=== PATIENT | male | born 1960 | race American Indian/Alaskan Native ===

== ENCOUNTER 2017-10-23 10:37 | Emergency (ER) | payer MEDICAID ==
[~2017-10-23] VITALS: Ht 167.6 cm; Wt 47.8 kg
[~2017-10-23 10:37] MED LIST: HYDR-569 PO
[2017-10-23 11:31] LABS: BASOPHILS # (AUTO) 0.1 X10'3 (0-0.2); BASOPHILS % (AUTO) 1.2 % (0-1); EOSINOPHILS # (AUTO) 0.1 X10'3 (0-0.9); EOSINOPHILS % (AUTO) 1.4 % (0-6); HEMATOCRIT 39.9 % (42.0-52.0); HEMOGLOBIN 13.4 g/dl (14.0-17.9); LYMPHOCYTES # (AUTO) 1.4 X10'3 (1.1-4.8); LYMPHOCYTES % (AUTO) 23.7 % (21-51); MEAN CORPUSCULAR HGB CONC 33.6 % (33.0-36.5); MEAN CORPUSCULAR VOLUME 89.2 FL (78-98); MEAN PLATELET VOLUME 8.4 FL (7.4-10.4); MONOCYTES # (AUTO) 0.5 X10'3 (0-0.9); MONOCYTES % (AUTO) 8.7 % (2-12); NEUTROPHILS # (AUTO) 3.8 X10'3 (1.8-7.7); PLATELET COUNT 241 X10'3 (140-440); RED BLOOD COUNT 4.47 X10'6 (4.70-6.10); RED CELL DISTRIBUTION WIDTH 13.4 % (11.5-14.5); WHITE BLOOD COUNT 5.8 X10'3 (4.5-11.0)
[2017-10-23 11:50] LABS: CLARITY,URINE SLIGHTLY CLOUDY (Clear); COLOR,URINE STRAW (Yellow); GLUCOSE, URINE NEGATIVE (Neg); KETONES,URINE 40 mg/dl (Neg); LEUKOCYTE ESTERASE ,URINE MODERATE (Neg); NITRITES, URINE POSITIVE (Neg); OCCULT BLOOD,URINE NEGATIVE (Neg); PROTEIN,URINE NEGATIVE (Neg); UROBILINOGEN,URINE 0.2 E.U/dL (0.2-1.0)
[2017-10-23 11:51] LABS: UA COLLECTION TYPE VOIDED
[2017-10-23] MEDS ORDERED: cephalexin 250mg capsule PO ONE (11:55)
[2017-10-23 11:56] LABS: ALANINE AMINOTRANSFERASE 22 U/L (12-78); ALBUMIN 4.1 G/DL (3.4-5.0); ALBUMIN/GLOBULIN RATIO 1.2 (1.1-1.5); ALKALINE PHOSPHATASE 76 IU/L (46-116); ANION GAP 8 (8-16); ASPARTATE AMINO TRANSFERASE 15 U/L (10-37); BILIRUBIN,TOTAL 0.5 MG/DL (0.1-1.0); BLOOD UREA NITROGEN 5 MG/DL (7-18); CALCIUM 9.3 MG/DL (8.5-10.1); CHLORIDE 105 MMOL/L (99-107); CREATININE 0.83 MG/DL (0.60-1.10); GLUCOSE 98 MG/DL (70-104); POTASSIUM 3.7 MMOL/L (3.5-5.1); SODIUM 140 MMOL/L (135-145); TOTAL CARBON DIOXIDE 26.7 MMOL/L (24-32); TOTAL PROTEIN 7.5 G/DL (6.4-8.2); eGFR > 90 ML/MIN
[2017-10-23 12:03] LABS: MUCUS STRANDS NONE SEEN /LPF (Neg); SQUAMOUS EPITHELIAL CELL,UR NONE SEEN /LPF (FEW); WBC CLUMPS,URINE FEW /HPF (NEGATIVE)
[2017-10-23 12:04] LABS: RBC,URINE 0-2 /HPF (0-2)
[2017-10-23 12:05] LABS: BACTERIA,URINE 4+ /HPF (Neg)
[2017-10-23] MEDS ORDERED: CEPH500C5 PO (12:17)
[2017-10-23 12:46] VITALS: BP 141/75
[2017-10-23] MEDS ORDERED: ZIPR20CA2 PO (13:20)
[2017-10-24] MEDS ORDERED: METO-539 PO (11:41)
[2017-10-24] MEDS ORDERED: FAMO40TA7 PO (11:41)
[2017-10-24] MEDS ORDERED: ROPI0.5T2 PO (11:41)
[2017-10-24] MEDS ORDERED: ACET325T55 PO (11:41)
[2017-10-24] MEDS ORDERED: CETI-102 PO (11:41)
[2017-10-24] MEDS ORDERED: CHOL50004 PO (11:41)
[2017-10-24] MEDS ORDERED: OLAN5TAB5 PO (13:23)
== END 2017-10-23 12:47 | disposition home or self-care (01) ==
LOC: ER 10:38
DX: F22 Delusional disorders (principal); N39.0 Urinary tract infection, site not specified; G20 Parkinson's disease; G89.29 Other chronic pain; Z98.890 Other specified postprocedural states
CPT/HCPCS: 36415; 80053; 81001; 85025; 87088; 99284

== ENCOUNTER 2017-10-24 07:24 | Emergency (ER) | payer MEDICAID ==
[~2017-10-24] VITALS: Ht 152.4 cm; Wt 50.9 kg
[~2017-10-24 07:24] MED LIST changes: +CEPH500C5 PO; +ZIPR20CA2 PO
[2017-10-24 08:23] LABS: BASOPHILS # (AUTO) 0.1 X10'3 (0-0.2); BASOPHILS % (AUTO) 0.8 % (0-1); EOSINOPHILS # (AUTO) 0.1 X10'3 (0-0.9); EOSINOPHILS % (AUTO) 1.3 % (0-6); HEMATOCRIT 40.9 % (42.0-52.0); HEMOGLOBIN 13.9 g/dl (14.0-17.9); LYMPHOCYTES # (AUTO) 1.1 X10'3 (1.1-4.8); LYMPHOCYTES % (AUTO) 13.1 % (21-51); MEAN CORPUSCULAR HEMOGLOBIN 30.3 PG (27.0-31.0); MEAN CORPUSCULAR HGB CONC 33.9 % (33.0-36.5); MEAN CORPUSCULAR VOLUME 89.4 FL (78-98); MEAN PLATELET VOLUME 8.1 FL (7.4-10.4); MONOCYTES # (AUTO) 0.5 X10'3 (0-0.9); MONOCYTES % (AUTO) 6.5 % (2-12); NEUTROPHILS # (AUTO) 6.4 X10'3 (1.8-7.7); NEUTROPHILS % (AUTO) 78.3 % (42-75); PLATELET COUNT 244 X10'3 (140-440); RED BLOOD COUNT 4.58 X10'6 (4.70-6.10); RED CELL DISTRIBUTION WIDTH 13.2 % (11.5-14.5); WHITE BLOOD COUNT 8.2 X10'3 (4.5-11.0)
[2017-10-24 08:40] LABS: ALANINE AMINOTRANSFERASE 31 U/L (12-78); ALBUMIN 4.2 G/DL (3.4-5.0); ALBUMIN/GLOBULIN RATIO 1.2 (1.1-1.5); ALKALINE PHOSPHATASE 80 IU/L (46-116); ANION GAP 7 (8-16); ASPARTATE AMINO TRANSFERASE 20 U/L (10-37); BILIRUBIN,TOTAL 0.5 MG/DL (0.1-1.0); BLOOD UREA NITROGEN 7 MG/DL (7-18); BUN/CREATININE RATIO 8.6 (5.4-32.0); CALCIUM 9.5 MG/DL (8.5-10.1); CHLORIDE 103 MMOL/L (99-107); CREATININE 0.81 MG/DL (0.60-1.10); GLUCOSE 108 MG/DL (70-104); POTASSIUM 3.7 MMOL/L (3.5-5.1); SODIUM 138 MMOL/L (135-145); TOTAL CARBON DIOXIDE 27.8 MMOL/L (24-32); TOTAL PROTEIN 7.7 G/DL (6.4-8.2); eGFR > 90 ML/MIN
[2017-10-24 08:41] LABS: ETHANOL < 0.010 GM/DL (0.0-0.010)
[2017-10-24 09:14] LABS: CLARITY,URINE Clear (Clear); COLOR,URINE Yellow (Yellow); GLUCOSE, URINE Negative (Neg); KETONES,URINE 40 mg/dl (Neg); LEUKOCYTE ESTERASE ,URINE Moderate (Neg); NITRITES, URINE Negative (Neg); OCCULT BLOOD,URINE Negative (Neg); PROTEIN,URINE Negative (Neg)
[2017-10-24 09:15] LABS: UA COLLECTION TYPE VOIDED
[2017-10-24 09:19] LABS: URINE AMPHETAMINE SCREEN NEGATIVE (Neg); URINE BARBITUATE SCREEN NEGATIVE (Neg); URINE BENZODIAZEPINES SCREEN NEGATIVE (Neg); URINE CANNABINOID SCREEN NEGATIVE (Neg); URINE COCAINE SCREEN NEGATIVE (Neg); URINE METHADONE SCREEN NEGATIVE (Neg); URINE OPIATE SCREEN NEGATIVE (Neg); URINE PHENCYCLIDINE SCREEN NEGATIVE (Neg)
[2017-10-24 09:21] LABS: BACTERIA,URINE FEW /HPF (Neg); RBC,URINE NONE SEEN /HPF (0-2); SQUAMOUS EPITHELIAL CELL,UR NONE SEEN /LPF (FEW)
[2017-10-24] MEDS ORDERED: cephalexin 500mg capsule PO ONE (10:30)
[2017-10-24] MEDS ORDERED: CHOL50004 PO (11:41)
[2017-10-24] MEDS ORDERED: CETI-102 PO (11:41)
[2017-10-24] MEDS ORDERED: FAMO40TA7 PO (11:41)
[2017-10-24] MEDS ORDERED: ACET325T55 PO (11:41)
[2017-10-24] MEDS ORDERED: ROPI0.5T2 PO (11:41)
[2017-10-24] MEDS ORDERED: METO-539 PO (11:41)
[2017-10-24] MEDS ORDERED: OLAN5TAB5 PO (13:23)
[2017-10-24] MEDS ORDERED: acetaminophen 325mg tablet PO PRN (14:25)
[2017-10-24] MEDS ORDERED: ziprasidone IM 20mg inj **IM only IM ONE (15:05)
[2017-10-24] MEDS ORDERED: OLANZapine 5mg rapidly disint. tablet PO SCH (21:00)
[2017-10-24] MEDS: ROPINIRole 0.25mg tablet PO SCH (21:16)
[2017-10-25] MEDS ORDERED: metoprolol succinate 25mg (24-HOUR) SR. Tablet PO SCH (08:00)
[2017-10-25] MEDS ORDERED: famotidine 20mg tablet PO SCH (08:00)
[2017-10-25] MEDS ORDERED: cetirizine 10mg tablet PO SCH (08:00)
[2017-10-25] MEDS ORDERED: vitamin D (cholecalciferol) 1,000 unit tablet PO SCH (08:00)
[2017-10-25] MEDS: ROPINIRole 0.25mg tablet PO SCH ×2 (08:59→13:31)
[2017-10-25 14:20] VITALS: BP 116/74
== END 2017-10-25 14:22 ==
LOC: ER 07:24
DX: F29 Unspecified psychosis not due to a substance or known physiological condition (principal); G89.29 Other chronic pain; F17.200 Nicotine dependence, unspecified, uncomplicated; F15.10 Other stimulant abuse, uncomplicated
CPT/HCPCS: 36415; 70450; 80053; 80305; 80320; 81001; 85025; 96372; 99285; J3486; 84443

== ENCOUNTER 2017-12-11 19:51 | Emergency (ER) | payer MEDICAID ==
[~2017-12-11] VITALS: Ht 167.6 cm; Wt 49.0 kg
[~2017-12-11 19:51] MED LIST changes: +ACET325T55 PO; +CETI-102 PO; +CHOL50004 PO; +FAMO40TA7 PO; -HYDR-569 PO; +METO-539 PO; +OLAN5TAB5 PO; +ROPI0.5T2 PO; -ZIPR20CA2 PO
[2017-12-11] MEDS ORDERED: ketorolac trometh inj. 60 MG/2 ML VIAL IM ONE (21:15)
[2017-12-11 21:42] VITALS: BP 110/70
== END 2017-12-11 21:43 | disposition home or self-care (01) ==
LOC: ER 19:52
DX: M54.5 Low back pain (principal); M62.838 Other muscle spasm; G89.29 Other chronic pain; Z98.890 Other specified postprocedural states; Z79.899 Other long term (current) drug therapy
CPT/HCPCS: 96372; 99284; J1885

== ENCOUNTER 2018-01-17 13:39 | Emergency (ER) | payer MEDICAID ==
[~2018-01-17] VITALS: Wt 50.0 kg
[2018-01-17] MEDS ORDERED: normal saline 1000ML IV soln IVB ONE ×2 (14:35)
[2018-01-17 14:36] LABS: COLOR,URINE Yellow (Yellow); GLUCOSE, URINE Negative (Neg); KETONES,URINE Negative (Neg); LEUKOCYTE ESTERASE ,URINE Large (Neg); NITRITES, URINE Positive (Neg); OCCULT BLOOD,URINE Negative (Neg); PH,URINE 6.5 (4.8-8.0); PROTEIN,URINE Negative (Neg)
[2018-01-17 14:46] LABS: UA COLLECTION TYPE VOIDED
[2018-01-17 14:47] LABS: CLARITY,URINE CLOUDY (Clear)
[2018-01-17 14:48] LABS: URINE AMPHETAMINE SCREEN NEGATIVE (Neg); URINE BARBITUATE SCREEN NEGATIVE (Neg); URINE BENZODIAZEPINES SCREEN NEGATIVE (Neg); URINE CANNABINOID SCREEN NEGATIVE (Neg); URINE COCAINE SCREEN NEGATIVE (Neg); URINE METHADONE SCREEN NEGATIVE (Neg); URINE OPIATE SCREEN NEGATIVE (Neg); URINE PHENCYCLIDINE SCREEN NEGATIVE (Neg)
[2018-01-17 14:55] LABS: BASOPHILS # (AUTO) 0.1 X10'3 (0-0.2); EOSINOPHILS # (AUTO) 0.1 X10'3 (0-0.9); EOSINOPHILS % (AUTO) 1.8 % (0-6); HEMATOCRIT 40.6 % (42.0-52.0); HEMOGLOBIN 13.5 g/dl (14.0-17.9); LYMPHOCYTES # (AUTO) 1.9 X10'3 (1.1-4.8); LYMPHOCYTES % (AUTO) 24.5 % (21-51); MEAN CORPUSCULAR HEMOGLOBIN 29.1 PG (27.0-31.0); MEAN CORPUSCULAR HGB CONC 33.3 % (33.0-36.5); MEAN CORPUSCULAR VOLUME 87.5 FL (78-98); MEAN PLATELET VOLUME 8.7 FL (7.4-10.4); MONOCYTES # (AUTO) 0.5 X10'3 (0-0.9); MONOCYTES % (AUTO) 6.6 % (2-12); NEUTROPHILS # (AUTO) 5.3 X10'3 (1.8-7.7); NEUTROPHILS % (AUTO) 66.1 % (42-75); PLATELET COUNT 246 X10'3 (140-440); RED BLOOD COUNT 4.64 X10'6 (4.70-6.10); WHITE BLOOD COUNT 7.9 X10'3 (4.5-11.0)
[2018-01-17 14:57] LABS: BACTERIA,URINE 4+ /HPF (Neg); CAL OXALATE CRYSTALS FEW /HPF (NEGATIVE)
[2018-01-17 14:58] LABS: RBC,URINE 0-2 /HPF (0-2); SQUAMOUS EPITHELIAL CELL,UR FEW /LPF (FEW)
[2018-01-17 14:59] LABS: MUCUS STRANDS FEW /LPF (Neg); WBC CLUMPS,URINE FEW /HPF (NEGATIVE)
[2018-01-17 15:20] LABS: ALANINE AMINOTRANSFERASE 31 U/L (12-78); ALBUMIN/GLOBULIN RATIO 1.1 (1.1-1.5); ALKALINE PHOSPHATASE 100 IU/L (46-116); ANION GAP 10 (8-16); ASPARTATE AMINO TRANSFERASE 14 U/L (10-37); BILIRUBIN,TOTAL 0.3 MG/DL (0.1-1.0); BLOOD UREA NITROGEN 8 MG/DL (7-18); BUN/CREATININE RATIO 9.1 (5.4-32.0); CALCIUM 9.4 MG/DL (8.5-10.1); CHLORIDE 107 MMOL/L (99-107); CREATININE 0.88 MG/DL (0.60-1.10); ETHANOL < 0.010 GM/DL (0.0-0.010); GLUCOSE 100 MG/DL (70-104); SODIUM 146 MMOL/L (135-145); TOTAL CARBON DIOXIDE 29.5 MMOL/L (24-32); TOTAL PROTEIN 7.5 G/DL (6.4-8.2); eGFR 90 ML/MIN
[2018-01-17] MEDS ORDERED: HYDR-3686 PO (17:20)
[2018-01-17] MEDS ORDERED: ROPI1TAB4 PO (17:20)
[2018-01-17] MEDS ORDERED: OLANZapine 2.5MG tablet PO ONE (17:50)
[2018-01-17] MEDS ORDERED: acetaminophen 325mg tablet PO PRN (18:05)
[2018-01-17] MEDS: ROPINIRole 1mg tablet PO SCH (20:45)
[2018-01-17] MEDS: hydrOXYzine 25 MG tablet PO SCH (20:45)
[2018-01-18] MEDS: cetirizine 10mg tablet PO SCH (07:55)
[2018-01-18] MEDS: cephalexin 500mg capsule PO SCH ×2 (07:55→20:50)
[2018-01-18] MEDS: vitamin D (cholecalciferol) 1,000 unit tablet PO SCH (07:56)
[2018-01-18] MEDS: famotidine 20mg tablet PO SCH (07:56)
[2018-01-18] MEDS: ROPINIRole 1mg tablet PO SCH ×3 (07:56→20:50)
[2018-01-18] MEDS: metoprolol succinate 25mg (24-HOUR) SR. Tablet PO SCH (08:00)
[2018-01-18] MEDS: lactobacillus rhamnosus 10,000 MMU CELLS/CAPSULE PO SCH (20:51)
[2018-01-18] MEDS: hydrOXYzine 25 MG tablet PO SCH (20:51)
[2018-01-18] MEDS: olanzapine 10mg tablet PO SCH (20:51)
[2018-01-19] MEDS: metoprolol succinate 25mg (24-HOUR) SR. Tablet PO SCH (08:00)
[2018-01-19] MEDS: cephalexin 500mg capsule PO SCH ×2 (08:28→20:19)
[2018-01-19] MEDS: lactobacillus rhamnosus 10,000 MMU CELLS/CAPSULE PO SCH ×2 (08:28→20:18)
[2018-01-19] MEDS: famotidine 20mg tablet PO SCH (08:28)
[2018-01-19] MEDS: ROPINIRole 1mg tablet PO SCH ×3 (08:28→20:19)
[2018-01-19] MEDS: cetirizine 10mg tablet PO SCH (08:29)
[2018-01-19] MEDS: vitamin D (cholecalciferol) 1,000 unit tablet PO SCH (08:29)
[2018-01-19] MEDS: LORazepam 1 MG tablet PO PRN (16:56)
[2018-01-19] MEDS: olanzapine 10mg tablet PO SCH (20:18)
[2018-01-19] MEDS: hydrOXYzine 25 MG tablet PO SCH (20:21)
[2018-01-20] MEDS: metoprolol succinate 25mg (24-HOUR) SR. Tablet PO SCH (07:37)
[2018-01-20] MEDS: cephalexin 500mg capsule PO SCH ×2 (07:38→20:41)
[2018-01-20] MEDS: lactobacillus rhamnosus 10,000 MMU CELLS/CAPSULE PO SCH ×2 (07:38→20:41)
[2018-01-20] MEDS: cetirizine 10mg tablet PO SCH (07:39)
[2018-01-20] MEDS: famotidine 20mg tablet PO SCH (07:39)
[2018-01-20] MEDS: vitamin D (cholecalciferol) 1,000 unit tablet PO SCH (07:39)
[2018-01-20] MEDS: ROPINIRole 1mg tablet PO SCH ×3 (07:39→20:41)
[2018-01-20] MEDS: LORazepam 1 MG tablet PO PRN (14:50)
[2018-01-20] MEDS: hydrOXYzine 25 MG tablet PO SCH (20:40)
[2018-01-20] MEDS: olanzapine 10mg tablet PO SCH (20:41)
[2018-01-21] MEDS: lactobacillus rhamnosus 10,000 MMU CELLS/CAPSULE PO SCH ×2 (08:44→20:15)
[2018-01-21] MEDS: famotidine 20mg tablet PO SCH (08:44)
[2018-01-21] MEDS: cetirizine 10mg tablet PO SCH (08:44)
[2018-01-21] MEDS: cephalexin 500mg capsule PO SCH ×2 (08:44→20:15)
[2018-01-21] MEDS: ROPINIRole 1mg tablet PO SCH ×3 (08:44→20:15)
[2018-01-21] MEDS: vitamin D (cholecalciferol) 1,000 unit tablet PO SCH (08:45)
[2018-01-21] MEDS: hydrOXYzine 25 MG tablet PO SCH (20:15)
[2018-01-21] MEDS: olanzapine 10mg tablet PO SCH (20:15)
[2018-01-21] MEDS: LORazepam 1 MG tablet PO PRN (21:06)
[2018-01-22] MEDS: cetirizine 10mg tablet PO SCH (08:02)
[2018-01-22] MEDS: ROPINIRole 1mg tablet PO SCH ×3 (08:02→20:37)
[2018-01-22] MEDS: lactobacillus rhamnosus 10,000 MMU CELLS/CAPSULE PO SCH ×2 (08:02→20:37)
[2018-01-22] MEDS: cephalexin 500mg capsule PO SCH ×2 (08:03→20:37)
[2018-01-22] MEDS: vitamin D (cholecalciferol) 1,000 unit tablet PO SCH (08:05)
[2018-01-22] MEDS: famotidine 20mg tablet PO SCH (08:07)
[2018-01-22] MEDS: hydrOXYzine 25 MG tablet PO SCH (20:37)
[2018-01-22] MEDS: olanzapine 10mg tablet PO SCH (20:40)
[2018-01-23] MEDS: cetirizine 10mg tablet PO SCH (08:15)
[2018-01-23] MEDS: lactobacillus rhamnosus 10,000 MMU CELLS/CAPSULE PO SCH ×2 (08:15→20:27)
[2018-01-23] MEDS: cephalexin 500mg capsule PO SCH ×2 (08:16→20:27)
[2018-01-23] MEDS: ROPINIRole 1mg tablet PO SCH ×3 (08:17→20:28)
[2018-01-23] MEDS: vitamin D (cholecalciferol) 1,000 unit tablet PO SCH (08:17)
[2018-01-23] MEDS: famotidine 20mg tablet PO SCH (08:17)
[2018-01-23] MEDS: LORazepam 1 MG tablet PO PRN (08:17)
[2018-01-23] MEDS ORDERED: RISP2TAB97 PO (14:06)
[2018-01-23] MEDS: OLANZapine 5mg rapidly disint. tablet PO SCH (15:39)
[2018-01-23] MEDS: hydrOXYzine 25 MG tablet PO SCH (20:28)
[2018-01-24] MEDS: LORazepam 1 MG tablet PO PRN ×2 (01:55→17:01)
[2018-01-24] MEDS: vitamin D (cholecalciferol) 1,000 unit tablet PO SCH (09:15)
[2018-01-24] MEDS: OLANZapine 5mg rapidly disint. tablet PO SCH ×2 (09:15→13:07)
[2018-01-24] MEDS: cetirizine 10mg tablet PO SCH (09:16)
[2018-01-24] MEDS: ROPINIRole 1mg tablet PO SCH ×2 (09:16→13:07)
[2018-01-24] MEDS: famotidine 20mg tablet PO SCH (09:16)
[2018-01-24] MEDS: cephalexin 500mg capsule PO SCH (09:16)
[2018-01-24] MEDS: lactobacillus rhamnosus 10,000 MMU CELLS/CAPSULE PO SCH (09:16)
[2018-01-24 18:15] VITALS: BP 99/66
== END 2018-01-24 18:19 ==
LOC: ER 13:39
DX: F29 Unspecified psychosis not due to a substance or known physiological condition (principal); F22 Delusional disorders; R44.0 Auditory hallucinations; G89.29 Other chronic pain; F17.200 Nicotine dependence, unspecified, uncomplicated; Z79.899 Other long term (current) drug therapy; Z60.2 Problems related to living alone
CPT/HCPCS: 36415; 80053; 80305; 80320; 81001; 84443; 85025; 96360; 99285; J3490; J7030; Q0177

== ENCOUNTER 2018-03-18 17:06 | Emergency (ER) | payer MEDICAID ==
[~2018-03-18] VITALS: Ht 170.2 cm; Wt 53.0 kg
[~2018-03-18 17:06] MED LIST changes: -CEPH500C5 PO; +HYDR-3686 PO; -OLAN5TAB5 PO; +RISP2TAB97 PO; -ROPI0.5T2 PO; +ROPI1TAB4 PO
[2018-03-18 17:16] VITALS: BP 131/85
[2018-03-18] MEDS ORDERED: LORazepam 0.5 MG tablet PO PRN (17:35)
== END 2018-03-18 17:50 | disposition home or self-care (01) ==
LOC: ER 17:06
DX: G25.2 Other specified forms of tremor (principal); G89.29 Other chronic pain; Z98.890 Other specified postprocedural states; Z79.899 Other long term (current) drug therapy
CPT/HCPCS: 99282

== ENCOUNTER 2018-05-12 23:58 | Emergency (ER) | payer MEDICAID ==
[~2018-05-12] VITALS: Ht 167.6 cm; Wt 55.9 kg
[2018-05-13 00:04] VITALS: BP 130/89
== END 2018-05-13 01:08 | disposition home or self-care (01) ==
LOC: ER 23:59
DX: R25.1 Tremor, unspecified (principal); G89.29 Other chronic pain; Z98.890 Other specified postprocedural states; Z79.899 Other long term (current) drug therapy
CPT/HCPCS: 99284

== ENCOUNTER 2018-08-22 15:20 | Outpatient (CLI) | payer MEDICAID | END 2018-08-22 23:59 | disposition home or self-care (01) | LOC: RAD 15:20 | PROVIDERS: ATTEND Nurse Practitioner Family | DX: R13.12 Dysphagia, oropharyngeal phase (principal); R47.1 Dysarthria and anarthria; F17.200 Nicotine dependence, unspecified, uncomplicated; Z79.899 Other long term (current) drug therapy | CPT/HCPCS: 74230 ==

== ENCOUNTER 2018-09-05 17:23 | Emergency (ER) | payer MEDICAID ==
[~2018-09-05] VITALS: Ht 167.6 cm; Wt 49.0 kg
[2018-09-05] MEDS: LORazepam 2 mg/ml vial IM ONE (19:46)
[2018-09-05 20:42] VITALS: BP 105/69
== END 2018-09-05 20:45 | disposition home or self-care (01) ==
LOC: ER 17:23
DX: G20 Parkinson's disease (principal); G89.29 Other chronic pain; F12.90 Cannabis use, unspecified, uncomplicated; Z79.899 Other long term (current) drug therapy
CPT/HCPCS: 96372; 99284; J2060

== ENCOUNTER 2019-05-27 09:43 | Emergency (ER) | payer MEDICAID ==
[~2019-05-27] VITALS: Ht 160 cm; Wt 45.0 kg
[2019-05-27 10:05] VITALS: BP 106/67
[2019-05-27 10:50] LABS: BASOPHILS % (AUTO) 0.5 % (0-1); EOSINOPHILS # (AUTO) 0.1 X10'3 (0-0.9); EOSINOPHILS % (AUTO) 0.8 % (0-6); HEMATOCRIT 37.5 % (42.0-52.0); HEMOGLOBIN 12.5 g/dl (14.0-17.9); LYMPHOCYTES # (AUTO) 2.5 X10'3 (1.1-4.8); LYMPHOCYTES % (AUTO) 33.6 % (21-51); MEAN CORPUSCULAR HEMOGLOBIN 29.9 PG (27.0-31.0); MEAN CORPUSCULAR HGB CONC 33.4 g/dL (33.0-36.5); MEAN CORPUSCULAR VOLUME 89.6 FL (78-98); MEAN PLATELET VOLUME 7.2 FL (7.4-10.4); MONOCYTES # (AUTO) 0.6 X10'3 (0-0.9); MONOCYTES % (AUTO) 7.6 % (2-12); NEUTROPHILS # (AUTO) 4.2 X10'3 (1.8-7.7); NEUTROPHILS % (AUTO) 57.5 % (42-75); PLATELET COUNT 282 X10'3 (140-440); RED BLOOD COUNT 4.18 X10'6 (4.70-6.10); RED CELL DISTRIBUTION WIDTH 13.7 % (11.5-14.5); WHITE BLOOD COUNT 7.3 X10'3 (4.5-11.0)
[2019-05-27 11:03] LABS: ALANINE AMINOTRANSFERASE 18 U/L (12-78); ALBUMIN 3.2 G/DL (3.4-5.0); ALBUMIN/GLOBULIN RATIO 0.8 (1.1-1.5); ALKALINE PHOSPHATASE 98 IU/L (46-116); ANION GAP 5 (8-16); ASPARTATE AMINO TRANSFERASE 7 U/L (10-37); BILIRUBIN,TOTAL 0.2 MG/DL (0.1-1.0); BLOOD UREA NITROGEN 7 MG/DL (7-18); BUN/CREATININE RATIO 9.2 (5.4-32.0); CALCIUM 9.5 MG/DL (8.5-10.1); CHLORIDE 109 MMOL/L (99-107); CREATININE 0.76 MG/DL (0.60-1.10); GLUCOSE 78 MG/DL (70-104); POTASSIUM 4.1 MMOL/L (3.5-5.1); SODIUM 145 MMOL/L (135-145); TOTAL CARBON DIOXIDE 30.7 MMOL/L (24-32); eGFR > 90 ML/MIN
[2019-05-27 11:24] LABS: CLARITY,URINE CLOUDY (Clear); COLOR,URINE YELLOW (Yellow); GLUCOSE, URINE NEGATIVE (Neg); KETONES,URINE NEGATIVE (Neg); LEUKOCYTE ESTERASE ,URINE LARGE (Neg); NITRITES, URINE POSITIVE (Neg); OCCULT BLOOD,URINE NEGATIVE (Neg); PROTEIN,URINE NEGATIVE (Neg); UROBILINOGEN,URINE 0.2 E.U/dL (0.2-1.0)
[2019-05-27 11:31] LABS: UA COLLECTION TYPE URINAL
[2019-05-27 11:33] LABS: BACTERIA,URINE 4+ /HPF (Neg); RBC,URINE NONE SEEN /HPF (0-2); SQUAMOUS EPITHELIAL CELL,UR NONE SEEN /LPF (FEW); WBC CLUMPS,URINE MODERATE /HPF (NEGATIVE)
[2019-05-27 11:34] LABS: AMORPHOUS PHOSPHATES 3+
--- NOTE | 2019-06-01 16:52 | NUR ---
PT CALLED AND SPOKE WITH . INFORMED THAT PT NEED AN ABX FOR A POSITIVE URINE CULTURE. INFORMED THAT BACTRIM DS WOULD BE CALLED IN FOR THE PT. REQUESTED THAT RX BE CALLED INTO [facility] ON [address]; BACTR[facility] 1 TAB PO BID X10 DAYS CALLED TO [facility] REQUESTED.
== END 2019-05-27 12:21 | disposition home or self-care (01) ==
LOC: ER 09:43
DX: R13.10 Dysphagia, unspecified (principal); G20 Parkinson's disease; R63.4 Abnormal weight loss; G89.29 Other chronic pain; F10.10 Alcohol abuse, uncomplicated; F12.90 Cannabis use, unspecified, uncomplicated; Z68.1 Body mass index [BMI] 19.9 or less, adult; Z98.890 Other specified postprocedural states; Z79.899 Other long term (current) drug therapy; Y90.9 Presence of alcohol in blood, level not specified
CPT/HCPCS: 36415; 80053; 81001; 85025; 85610; 87077; 87088; 87186; 99284

== ENCOUNTER 2019-06-05 11:12 | Emergency (ER) | payer MEDICAID ==
[~2019-06-05] VITALS: Ht 170.2 cm; Wt 45.8 kg
[2019-06-05] MEDS ORDERED: normal saline 1000ML IV soln IVB ONE (11:25)
[2019-06-05 11:52] LABS: BASOPHILS # (AUTO) 0.1 X10'3 (0-0.2); EOSINOPHILS % (AUTO) 0.4 % (0-6); HEMATOCRIT 38.8 % (42.0-52.0); LYMPHOCYTES # (AUTO) 1.7 X10'3 (1.1-4.8); LYMPHOCYTES % (AUTO) 23.4 % (21-51); MEAN CORPUSCULAR HEMOGLOBIN 29.5 PG (27.0-31.0); MEAN CORPUSCULAR HGB CONC 33.5 g/dL (33.0-36.5); MEAN PLATELET VOLUME 7.1 FL (7.4-10.4); MONOCYTES # (AUTO) 0.6 X10'3 (0-0.9); MONOCYTES % (AUTO) 8.1 % (2-12); NEUTROPHILS # (AUTO) 4.7 X10'3 (1.8-7.7); NEUTROPHILS % (AUTO) 67.1 % (42-75); PLATELET COUNT 298 X10'3 (140-440); RED BLOOD COUNT 4.41 X10'6 (4.70-6.10); RED CELL DISTRIBUTION WIDTH 13.1 % (11.5-14.5); WHITE BLOOD COUNT 7.1 X10'3 (4.5-11.0)
[2019-06-05 12:04] LABS: ALANINE AMINOTRANSFERASE 15 U/L (12-78); ALBUMIN 3.5 G/DL (3.4-5.0); ALBUMIN/GLOBULIN RATIO 0.9 (1.1-1.5); ALKALINE PHOSPHATASE 111 IU/L (46-116); ANION GAP 8 (8-16); ASPARTATE AMINO TRANSFERASE 8 U/L (10-37); BILIRUBIN,TOTAL 0.3 MG/DL (0.1-1.0); BLOOD UREA NITROGEN 8 MG/DL (7-18); BUN/CREATININE RATIO 10.4 (5.4-32.0); CALCIUM 9.7 MG/DL (8.5-10.1); CHLORIDE 106 MMOL/L (99-107); CREATININE 0.77 MG/DL (0.60-1.10); GLUCOSE 93 MG/DL (70-104); MAGNESIUM 1.7 MG/DL (1.5-2.4); PHOSPHORUS 3.9 MG/DL (2.3-4.5); POTASSIUM 3.9 MMOL/L (3.5-5.1); SODIUM 142 MMOL/L (135-145); TOTAL CARBON DIOXIDE 27.8 MMOL/L (24-32); TOTAL PROTEIN 7.6 G/DL (6.4-8.2); eGFR > 90 ML/MIN
[2019-06-05] MEDS ORDERED: ibuprofen 200mg tablet PO ONE (13:35)
[2019-06-05] MEDS ORDERED: pseudoephedrine 30mg tablet PO ONE (13:35)
[2019-06-05 14:22] LABS: CLARITY,URINE SLIGHTLY CLOUDY (Clear); COLOR,URINE YELLOW (Yellow); GLUCOSE, URINE NEGATIVE (Neg); KETONES,URINE NEGATIVE (Neg); LEUKOCYTE ESTERASE ,URINE SMALL (Neg); NITRITES, URINE NEGATIVE (Neg); OCCULT BLOOD,URINE NEGATIVE (Neg); PROTEIN,URINE NEGATIVE (Neg); UROBILINOGEN,URINE 0.2 E.U/dL (0.2-1.0)
[2019-06-05 14:23] LABS: UA COLLECTION TYPE CLN CATCH MIDSTREAM
[2019-06-05 14:28] LABS: MUCUS STRANDS FEW /LPF (Neg); SQUAMOUS EPITHELIAL CELL,UR MODERATE /LPF (FEW)
[2019-06-05 14:29] LABS: BACTERIA,URINE 1+ /HPF (Neg); HYALINE CASTS 0-3 /LPF (NEGATIVE); RBC,URINE 0-2 /HPF (0-2)
[2019-06-05 15:32] VITALS: BP 137/88
== END 2019-06-05 15:33 | disposition home or self-care (01) ==
LOC: MERGE 11:13 → ER 11:13
DX: N39.0 Urinary tract infection, site not specified (principal); G20 Parkinson's disease; R05 Cough
CPT/HCPCS: 36415; 70450; 80053; 81001; 83735; 84100; 84484; 85025; 87088; 93005; 99284; J7030

== ENCOUNTER 2019-11-30 11:10 | Emergency (ER) | payer MEDICAID ==
[~2019-11-30] VITALS: Ht 167.6 cm; Wt 45.4 kg
[~2019-11-30 11:10] MED LIST changes: -CETI-102 PO; +CETI-90 PO; -ROPI1TAB4 PO; +ROPI1TAB6 PO
[2019-11-30 11:14] VITALS: BP 127/76
== END 2019-11-30 12:05 | disposition left against medical advice (07) ==
LOC: ER 11:10
DX: K59.00 Constipation, unspecified (principal); Z53.21 Procedure and treatment not carried out due to patient leaving prior to being seen by health care provider

== ENCOUNTER 2020-04-13 17:43 | Emergency (ER) | payer MEDICAID ==
[~2020-04-13] VITALS: Ht 165.1 cm; Wt 45.0 kg
[2020-04-13 17:50] VITALS: BP 126/73
--- NOTE | 2020-04-13 18:36 | NUR ---
PER SCREENER, PT LWOBS. PT BIB EMS AND TRIAGED FOR ETOH AND PARKENSONS, HAS NOT BEEN TAKING HIS MEDICATIONS PER EMS. ATTEMPT WAS MADE TO STOP PT BUT HE TOOK OFF OUT THE LOBBY DOOR AND OUT TO THE STREET.
== END 2020-04-13 18:36 | disposition left against medical advice (07) ==
LOC: ER 17:44
DX: Z91.14 Patient's other noncompliance with medication regimen (principal); M25.539 Pain in unspecified wrist; Z53.21 Procedure and treatment not carried out due to patient leaving prior to being seen by health care provider

== ENCOUNTER 2022-03-14 09:40 | Emergency (ER) | payer MEDICAID ==
[~2022-03-14] VITALS: Ht 167.6 cm; Wt 47.2 kg
[2022-03-14 10:06] VITALS: BP 113/90
--- NOTE | 2022-03-14 11:47 | NUR ---
Patients caregiver states that patient reporting the voices are telling him to leave. Patient was asked encouraged to stay longer, patient unwilling to wait to be seen. Patient left with caregiver.
[2022-03-15] MEDS ORDERED: CARB1TAB23 PO ×3 (15:30→15:32)
== END 2022-03-14 11:48 | disposition left against medical advice (07) ==
LOC: ER 09:40
DX: R44.0 Auditory hallucinations (principal); Z53.21 Procedure and treatment not carried out due to patient leaving prior to being seen by health care provider

== ENCOUNTER 2022-03-15 06:32 | Inpatient (IN) | payer MEDICAID ==
[~2022-03-15] VITALS: Ht 167.6 cm; Wt 49.4 kg
[2022-03-15 07:27] LABS: BASOPHILS # (AUTO) 0.1 X10'3 (0-0.2); EOSINOPHILS % (AUTO) 0.7 % (0-6); HEMATOCRIT 42.1 % (42.0-52.0); HEMOGLOBIN 14.3 g/dl (14.0-17.9); LYMPHOCYTES # (AUTO) 1.4 X10'3 (1.1-4.8); LYMPHOCYTES % (AUTO) 24.4 % (21-51); MEAN CORPUSCULAR HEMOGLOBIN 31.2 PG (27.0-31.0); MEAN CORPUSCULAR VOLUME 91.9 FL (78-98); MEAN PLATELET VOLUME 8.3 FL (7.4-10.4); MONOCYTES # (AUTO) 0.5 X10'3 (0-0.9); MONOCYTES % (AUTO) 8.6 % (2-12); NEUTROPHILS # (AUTO) 3.8 X10'3 (1.8-7.7); NEUTROPHILS % (AUTO) 65.3 % (42-75); PLATELET COUNT 247 X10'3 (140-440); RED BLOOD COUNT 4.58 X10'6 (4.70-6.10); WHITE BLOOD COUNT 5.8 X10'3 (4.5-11.0)
[2022-03-15 07:38] LABS: ALANINE AMINOTRANSFERASE 17 U/L (12-78); ALBUMIN 3.8 G/DL (3.4-5.0); ALBUMIN/GLOBULIN RATIO 1.1 (1.1-1.5); ALKALINE PHOSPHATASE 87 IU/L (46-116); ANION GAP 13 (8-16); ASPARTATE AMINO TRANSFERASE 22 U/L (10-37); BILIRUBIN,TOTAL 0.8 MG/DL (0.1-1.0); BLOOD UREA NITROGEN 13 MG/DL (7-18); BUN/CREATININE RATIO 15.1 (5.4-32.0); CALCIUM 8.9 MG/DL (8.5-10.1); CHLORIDE 103 MMOL/L (99-107); CREATININE 0.86 MG/DL (0.60-1.10); GLUCOSE 64 MG/DL (70-104); POTASSIUM 4.4 MMOL/L (3.5-5.1); SODIUM 139 MMOL/L (135-145); TOTAL CARBON DIOXIDE 23.3 MMOL/L (24-32); TOTAL PROTEIN 7.4 G/DL (6.4-8.2); eGFR > 90 ML/MIN
[2022-03-15 07:49] LABS: ETHANOL < 0.010 GM/DL (0.0-0.010)
[2022-03-15 08:06] LABS: CLARITY,URINE CLEAR (Clear); COLOR,URINE YELLOW (Yellow); GLUCOSE, URINE NEGATIVE (Neg); KETONES,URINE >=80 mg/dl (Neg); LEUKOCYTE ESTERASE ,URINE NEGATIVE (Neg); OCCULT BLOOD,URINE TRACE-INTACT (Neg); PH,URINE 5.5 (4.8-8.0); PROTEIN,URINE NEGATIVE (Neg); UA COLLECTION TYPE NON-SPECIFIED; UROBILINOGEN,URINE 0.2 E.U/dL (0.2-1.0)
[2022-03-15 08:07] LABS: NITRITES, URINE NEGATIVE (Neg)
[2022-03-15 08:10] LABS: RBC,URINE 0-2 /HPF (0-2)
[2022-03-15 08:11] LABS: BACTERIA,URINE FEW /HPF (Neg); MUCUS STRANDS NONE SEEN /LPF (Neg); SQUAMOUS EPITHELIAL CELL,UR FEW /LPF (FEW)
[2022-03-15 08:50] LABS: URINE AMPHETAMINE SCREEN NEGATIVE (Neg); URINE BARBITUATE SCREEN NEGATIVE (Neg); URINE BENZODIAZEPINES SCREEN NEGATIVE (Neg); URINE CANNABINOID SCREEN NEGATIVE (Neg); URINE COCAINE SCREEN NEGATIVE (Neg); URINE METHADONE SCREEN NEGATIVE (Neg); URINE OPIATE SCREEN NEGATIVE (Neg); URINE PHENCYCLIDINE SCREEN NEGATIVE (Neg)
--- NOTE | 2022-03-15 08:54 | NUR ---
PACKET SENT TO [facility]
--- NOTE | 2022-03-15 10:09 | NUR ---
service line layer, Keyla, PCP Dr. Mittal at [facility]
--- NOTE | 2022-03-15 10:10 | NUR ---
The patient moved to bed 20 from the main ER. He is verbalizing fear that the police are coming to arrest him and feeling unsafe. His care provider is at the bedside and reassuring him. He is thin and has tremors 2nd to parkinson's disease. The care provider was unable to state what his mental health diagnosis is or what medications he currently takes.
[2022-03-15] MEDS ORDERED: LORazepam 1 MG tablet PO ONE (12:15)
--- NOTE | 2022-03-15 12:18 | NUR ---
The patient fearful of "the people outside" who may have arrested his caregiver or want to harm him. Discussed patient's paranoia and anxiety with Dr. Nelson and orders received.
--- NOTE | 2022-03-15 13:05 | NUR ---
The patient appears to be sleeping.
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
--- NOTE | 2022-03-15 14:30 | NUR ---
The patient has sancho accepted at [facility] and will be transferred this evening
--- NOTE | 2022-03-15 14:30 | NUR ---
The patient appears to be sleeping
[2022-03-15] MEDS ORDERED: CARB1TAB23 PO ×3 (15:30→15:32)
--- NOTE | 2022-03-15 16:30 | NUR ---
The patient appears to be sleeping
[2022-03-15] MEDS: carbidoba-levodopa 25-100mg tablet PO SCH ×2 (17:47→21:06)
--- NOTE | 2022-03-15 19:05 | NUR ---
Patient has eaten dinner, and now appears to be sleeping.
--- NOTE | 2022-03-15 20:43 | NUR ---
Patient appears to be sleeping on his right side.
--- NOTE | 2022-03-15 20:45 | NUR ---
Patient is accepted to [facility] and will be going up soon.
[2022-03-15] MEDS: ROPINIRole 1mg tablet PO SCH (21:06)
--- NOTE | 2022-03-15 21:14 | NUR ---
JAMES Crawford from [facility] is here to take the patient upstairs.
[2022-03-15] MEDS ORDERED: acetaminophen 325mg tablet PO PRN ×2 (21:30)
[2022-03-15] MEDS ORDERED: loperamide 2mg capsule PO PRN (21:30)
[2022-03-15] MEDS ORDERED: mag hydrox/Alum hydrox/simeth 30ml oral suspension PO PRN (21:30)
[2022-03-15] MEDS ORDERED: magnesium hydroxide 30ml (MOM) UD suspension PO PRN (21:30)
[2022-03-15 21:44] VITALS: BP 97/63
--- NOTE | 2022-03-15 23:57 | NUR ---
Admission Note: Chauncey 5150- GD/DTS 61 y/o male brought in to ED by caregiver, 5150 advisement on 03/15/2022 for GD/DTS. Patient made statements to staff stating he has auditory hallucinations, paranoia, and that he does not feel safe in his home, unable to develop a safety plan and hears voices telling him to kill himself. Pt has psychiatric hx of schizophrenia. Pt has medical Hx of Parkinson disease, HTN, Gerd, L foot surgery, brain surgery and orthopedic surgeries. Patient is [place] and only has a right sided hearing aide and reports the left one got eaten by his dog. The patient has slurred speech and with the added hearing lose is hard to communicate with. Patient has feeding tube from dysphagia a couple years ago that reportedly he doesn't need and would like to get removed. The patient denies self harm but communication is difficult. The patient is cooperative and pleasant otherwise. The patient supposedly lives with his and has a cardiac care nurse named Keyla. The patient has generalized weakness and uses a walker at home and has been using a wheelchair since admit this evening.
[2022-03-16] MEDS: carbidoba-levodopa 25-100mg tablet PO SCH ×4 (07:27→20:01)
[2022-03-16] MEDS: ROPINIRole 1mg tablet PO SCH ×3 (07:28→20:01)
[2022-03-16 07:44] LABS: CHOL/HDL RATIO 4.5 (0.00-4.99); CHOLESTEROL 201 MG/DL (0-200); HDL CHOLESTEROL 45 MG/DL (35-60); LDL CHOLESTEROL 131 MG/DL (50-100); TRIGLYCERIDES 58 MG/DL (20-135)
[2022-03-16 08:00] VITALS: BP 125/56
[2022-03-16 08:06] LABS: HEMOGLOBIN A1C 5.9 % (4.5-6.2)
[2022-03-16] MEDS: nicotine 14mg patch - 24hr TD SCH (10:30)
[2022-03-16] MEDS ORDERED: NICOTINE POLACRILEX 2 MG LOZENGE BC PRN (10:30)
--- NOTE | 2022-03-16 16:33 | NUR ---
Nursing Progress Note: Chauncey Problem: 5150 states GD/DTS. Patient made statements to staff stating he has auditory hallucinations, paranoia, and that he does not feel safe in his home, unable to develop a safety plan and hears voices telling him to kill himself. Pt has psychiatric hx of schizophrenia. Pt has medical Hx of Parkinson disease, HTN, Gerd, L foot surgery, brain surgery and orthopedic surgeries. Patient is [place] and only has a right sided hearing aid and reports the left one got eaten by his dog. Pt. presents as delusional AEB stating Im I going to alf, Im talking to guards in my mind He self isolates in his room most of the shift. Interventions: Medications administered throughout the shift. Business Process Associate continues to promote independence, to provide pt. with a safe and therapeutic environment, clear communication, active listening and positive encouragement, and encouraged to participate in group therapy. Attempted to call IHSS worker to provide a backup hearing aid battery; the number was disconnected. Pt. was seen by provider re existing feeding tube; no plans to remove at this time. Requested PRN for AH; pending response. Response: Pt. denies SI, HI, but endorses AH. He presents as anxious and worries he may go to alf Pt. spent most of the shift in his room awake and self-isolating, he did not attend group. Pt. ate his meals in the dining room with cohorts, but typically returns to his room right after eating, he did not attend group. Plan: Patient continues to require stabilization with medication management and monitoring in a safe and therapeutic environment. Q15 min checks for safety
[2022-03-16 20:00] VITALS: BP 107/70
[2022-03-16] MEDS ORDERED: CLOZAPINE 25 MG oral disintegrating tablet PO SCH (22:05)
[2022-03-16] MEDS: traZODone 50mg tablet PO PRN (22:13)
[2022-03-16] MEDS: risperiDONE 2mg tablet PO SCH (23:12)
[2022-03-17] MEDS: traZODone 50mg tablet PO PRN ×2 (00:31→20:32)
--- NOTE | 2022-03-17 05:26 | NUR ---
Nursing Progress Note: Chauncey Problem: 5150 states GD/DTS. Patient made statements to staff stating he has auditory hallucinations, paranoia, and that he does not feel safe in his home, unable to develop a safety plan and hears voices telling him that the police is coming to get him. Pt has psychiatric hx of schizophrenia. Pt has medical Hx of Parkinson disease, HTN, Gerd, L foot surgery, brain surgery and orthopedic surgeries. Patient is [place] and only has a right sided hearing aid and reports the left one got eaten by his dog. Pt. presents as delusional AEB stating The police is try to kill my mom He self isolates in his room most of the shift. Interventions: Medications administered throughout the shift. Mobile Architect continues to promote independence, to provide pt. with a safe and therapeutic environment, clear communication, active listening and positive encouragement, and encouraged to participate in group therapy. Attempted to call IHSS worker to provide a backup hearing aid battery; the number was disconnected. Pt. was seen by provider re existing feeding tube; no plans to remove at this time. Requested PRN for ; pending response. Response: Pt presents anxious and worried, he did not attend group and spend most of his time in his room. Pt has woken up a few times throughout the night with auditory hallucination, telling him the police is out to get him. Stating The police is trying to kill my mom. An order for Trazodone 100 mg and Risperdal 1mg PO HS was given. Pt continued to wake up throughout the night one hour later talking to himself a second dose of trazodone was given per MD order. Plan: Patient continues to require stabilization with medication management and monitoring in a safe and therapeutic environment. Q15 min checks for safety
[2022-03-17 07:24] VITALS: BP 101/62
[2022-03-17] MEDS: carbidoba-levodopa 25-100mg tablet PO SCH ×4 (08:03→20:32)
[2022-03-17] MEDS: atorvastatin 10mg tablet PO SCH (08:03)
[2022-03-17] MEDS: ROPINIRole 1mg tablet PO SCH ×3 (08:03→20:32)
[2022-03-17] MEDS: nicotine 14mg patch - 24hr TD SCH (08:06)
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
[2022-03-17 20:00] VITALS: BP 112/68
[2022-03-17] MEDS: risperiDONE 2mg tablet PO SCH (20:32)
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
[2022-03-18 07:42] VITALS: BP 105/75
[2022-03-18] MEDS: atorvastatin 10mg tablet PO SCH (07:46)
[2022-03-18] MEDS: carbidoba-levodopa 25-100mg tablet PO SCH ×4 (07:46→20:09)
[2022-03-18] MEDS: nicotine 14mg patch - 24hr TD SCH (07:46)
[2022-03-18] MEDS: ROPINIRole 1mg tablet PO SCH ×3 (07:47→20:09)
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
--- NOTE | 2022-03-18 13:41 | NUR ---
Pt. reports ROEL LEIVA this shift
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
--- NOTE | 2022-03-18 15:51 | NUR ---
Nursing Progress Note: Chauncey Problem: 5150 states GD/DTS. Patient made statements to staff stating he has auditory hallucinations, paranoia, and that he does not feel safe in his home, unable to develop a safety plan and hears voices telling him to kill himself. Pt has psychiatric hx of schizophrenia. Pt has medical Hx of Parkinson disease, HTN, Gerd, L foot surgery, brain surgery and orthopedic surgeries. Patient is [place] and only has a right sided hearing aid and reports the left one got eaten by his dog. Pt. presents as delusional AEB endorsing AH stating I hear voices of the guards He was observed pacing the unit at times today. Interventions: Medications administered throughout the shift. Personnel Research Psychologist continues to promote independence, to provide pt. with a safe and therapeutic environment, clear communication, active listening and positive encouragement, and encouraged to participate in group therapy. Spoke to IHSS worker per pts. request (see note) and monitored G tube site; no redness found. Response: Pt. denies SI, HI, but endorses AH, but denies VH. He presents as anxious and continues to worry Im a go to intermediate Pt. spent a little more time out of his room. Pt. ate his meals in the dining room with cohorts, but doesnt engage socially. He is wearing green unit scrubs and his hair is combed. Pt. is found to have slight tremors and minimal shuffle. Plan: Patient continues to require stabilization with medication management and monitoring in a safe and therapeutic environment. Q15 min checks for safety
[2022-03-18 19:00] VITALS: BP 109/78
[2022-03-18] MEDS: traZODone 50mg tablet PO PRN ×2 (20:09→21:37)
[2022-03-18] MEDS: risperiDONE 2mg tablet PO SCH (20:09)
[2022-03-19] MEDS: QUEtiapine 25mg tablet PO PRN (01:03)
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
[2022-03-19 07:32] VITALS: BP 90/56
[2022-03-19] MEDS: atorvastatin 10mg tablet PO SCH (07:34)
[2022-03-19] MEDS: carbidoba-levodopa 25-100mg tablet PO SCH ×4 (07:35→20:16)
[2022-03-19] MEDS: ROPINIRole 1mg tablet PO SCH ×3 (07:35→20:16)
[2022-03-19] MEDS: nicotine 14mg patch - 24hr TD SCH (07:35)
--- NOTE | 2022-03-19 11:27 | NUR ---
Pt. has been refusing his meals and not participating in snack since yesterday afternoon. Pt. reports AH, and presents as paranoid; Provider to be notified.
--- NOTE | 2022-03-19 17:00 | NUR ---
Nursing Progress Note: Chauncey Problem: 5150 states GD/DTS. Patient made statements to staff stating he has auditory hallucinations, paranoia, and that he does not feel safe in his home, unable to develop a safety plan and hears voices telling him to kill himself. Pt has psychiatric hx of schizophrenia. Pt has medical Hx of Parkinson disease, HTN, Gerd, L foot surgery, brain surgery and orthopedic surgeries. Patient is [place] and only has a right sided hearing aid and reports the left one got eaten by his dog. Pt. presents as withdrawn and delusional AEB endorsing AH stating I hear voices of people He has had a poor appetite since dinner yesterday often refusing meals. Pt has isolated himself to his room and takes several prompts to attend meals. Poor self-care. Interventions: Medications administered throughout the shift. Float Builder continues to promote independence, to provide pt. with a safe and therapeutic environment, clear communication, active listening and positive encouragement, and encouraged to participate in group therapy. Response: Pt. denies SI, HI, but endorses AH, but denies VH. He presents as anxious and states I cant eat cause I have too much things then holding his hands to each side of his head. Pt. refused meals this shift and only briefly stayed in dining room when rewriter went to check on pt. he was observed lying in bed covered up with his arms stretched to the ceiling and gazing. Pt. required rewriter to put toothpaste on his brush in addition to several prompts for him to ten to his hygienic needs. Pt observed with minimal tremors to extremities, no shuffled gait seen. Plan: Patient continues to require stabilization with medication management and monitoring in a safe and therapeutic environment. Q15 min checks for safety
[2022-03-19 19:35] VITALS: BP 109/77
[2022-03-19] MEDS: risperiDONE 2mg tablet PO SCH (20:16)
[2022-03-19] MEDS: LORazepam 1 MG tablet PO SCH (20:16)
[2022-03-19] MEDS: traZODone 50mg tablet PO PRN (20:16)
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
[2022-03-20] MEDS: carbidoba-levodopa 25-100mg tablet PO SCH ×4 (07:07→19:58)
[2022-03-20] MEDS: ROPINIRole 1mg tablet PO SCH ×3 (07:07→19:58)
[2022-03-20] MEDS: atorvastatin 10mg tablet PO SCH (07:07)
[2022-03-20] MEDS: LORazepam 1 MG tablet PO SCH ×3 (07:07→19:59)
[2022-03-20] MEDS: nicotine 14mg patch - 24hr TD SCH (07:09)
--- NOTE | 2022-03-20 07:31 | NUR ---
Initial: Pt admitted w/ psychosis per EMR. Noted pt has hx of dysphagia and currently has G-tube. Current scaled wt low though consistent w/ wts from 2 years ago. Low BMI could possibly be r/t dysphagia as well as psych issues. C/w w/ RN who states the G-tube will be left in though pt does not have any difficulties w/ chewing or swallowing, and refusal of meals is more related to AH. Pt on Regular diet initially w/ good intake though has declined last couple days, overall avg 53% x 12 meals. Will provide Smoothies/shakes w/ meals in hopes to optimize PO intake. LBM 03/18. Will continue to monitor. Recs: 1. Continue Regular diet as tolerated; encourage PO 2. Smoothie WB, Shake BIDLD 3. Bowel care PRN 4. Weekly wts Addendum: 03/20/22 at [address] Amended: Links added.
[2022-03-20 08:00] VITALS: BP 157/75
--- NOTE | 2022-03-20 17:04 | NUR ---
Nursing Progress Note: Chauncey Problem: 5150 states GD/DTS. Patient made statements to staff stating he has auditory hallucinations, paranoia, and that he does not feel safe in his home, unable to develop a safety plan and hears voices telling him to kill himself. Pt has psychiatric hx of schizophrenia. Pt has medical Hx of Parkinson disease, HTN, Gerd, L foot surgery, brain surgery and orthopedic surgeries. Patient is [place] and only has a right sided hearing aid and reports the left one got eaten by his dog. Pt. observed responding to IS in his room. Interventions: Medications administered throughout the shift. Ship Cleaner continues to promote independence, to provide pt. with a safe and therapeutic environment, clear communication, active listening and positive encouragement, and encouraged to participate in group therapy. Response: Pt. denies SI, HI, but endorses AH, sating I hear voices sometimes but denies VH, his discharge plan is to find a new place. He presents with more social skills today, and was ambulating on the unit in-between meals. Pt. attended all meals in the main dining room and ate well, in addition to participating in scheduled snack times. He is more willing to talk to automobile and property underwriter and make eye contact. Pt. denies feeling of anxiety, but was observed sitting in a WC in his room talking to himself. Plan: Patient continues to require stabilization with medication management and monitoring in a safe and therapeutic environment. Q15 min checks for safety
[2022-03-20 19:17] VITALS: BP 113/80
[2022-03-20] MEDS: traZODone 50mg tablet PO PRN ×2 (19:58→21:44)
[2022-03-20] MEDS: risperiDONE 2mg tablet PO SCH (19:59)
[2022-03-20] MEDS: QUEtiapine 25mg tablet PO PRN (21:44)
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
[2022-03-21] MEDS: nicotine 14mg patch - 24hr TD SCH ×2 (08:00→08:15)
[2022-03-21] MEDS: LORazepam 1 MG tablet PO SCH ×3 (08:13→20:10)
[2022-03-21] MEDS: carbidoba-levodopa 25-100mg tablet PO SCH ×4 (08:13→20:10)
[2022-03-21] MEDS: atorvastatin 10mg tablet PO SCH (08:13)
[2022-03-21] MEDS: ROPINIRole 1mg tablet PO SCH ×3 (08:13→20:10)
[2022-03-21 08:43] VITALS: BP 94/62
--- NOTE | 2022-03-21 14:13 | NUR ---
5250 [employer]LD [employer] GRAVE DISABILITY FIONA Amaro
--- NOTE | 2022-03-21 15:04 | NUR ---
Nursing Progress Note: Problem: 5150 states GD/DTS. Patient made statements to staff stating he has auditory hallucinations, paranoia, and that he does not feel safe in his home, unable to develop a safety plan and hears voices telling him to kill himself. Pt has psychiatric hx of schizophrenia. Pt has medical Hx of Parkinson disease, HTN, Gerd, L foot surgery, brain surgery and orthopedic surgeries. Interventions: Medications administered throughout the shift. Global Position System Technician continues to promote independence, to provide pt. with a safe and therapeutic environment, clear communication, active listening and positive encouragement, and encouraged to participate in group therapy. Pt.s mother visited. No plans to remove at this time per provider. Pt. c/o headache. Pt. given reassurance and grounding in reality. Response: Pt is observed laying in bed at shift change, his hands raised up in the air waiving them around quietly. He refuses to take his AM medications stating, its my right, I dont have to. He also did not eat breakfast again. Both RN and charge master specialist reassured pt and tried reasoning with him, but he continued to refuse AM medications. Tomi made aware. Pts small animal caretaker comes to visit and with her help, pt agrees to take his medications. Pt also eats a sandwich, yogurt, and chips in her presence. She states he likes to eat, but the voices are telling him he cant. Pt also eats half a sandwich at lunch and half a yogurt. Pt's 5250 was upheld today for grave disability. PT thinks he is going home, and is excited, he carries all his belongings around and states "The java swing developer said I could go home." RN reinforced reality in a gentle way and told him he was not going home and his 5250 was upheld. PT went to his room and sat quietly. Plan: Patient continues to require stabilization with medication management and monitoring in a safe and therapeutic environment. Q15 min checks for safety
[2022-03-21 19:33] VITALS: BP 111/73
[2022-03-21] MEDS: traZODone 50mg tablet PO PRN (20:10)
[2022-03-21] MEDS: risperiDONE 2mg tablet PO SCH (20:10)
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
[2022-03-22 08:00] VITALS: BP 104/62
[2022-03-22] MEDS: LORazepam 1 MG tablet PO SCH ×3 (09:07→19:51)
[2022-03-22] MEDS: atorvastatin 10mg tablet PO SCH (09:07)
[2022-03-22] MEDS: ROPINIRole 1mg tablet PO SCH ×3 (09:08→19:51)
[2022-03-22] MEDS: risperiDONE 0.5mg tablet PO SCH ×2 (09:08→19:51)
[2022-03-22] MEDS: carbidoba-levodopa 25-100mg tablet PO SCH ×4 (09:08→19:51)
[2022-03-22] MEDS: nicotine 14mg patch - 24hr TD SCH (09:10)
--- NOTE | 2022-03-22 15:24 | NUR ---
Nursing Progress Note 5150 states GD/DTS. Patient made statements to staff stating he has auditory hallucinations, paranoia, and that he does not feel safe in his home, unable to develop a safety plan and hears voices telling him to kill himself. Pt has psychiatric hx of schizophrenia. Pt has medical Hx of Parkinson disease, HTN, Gerd, L foot surgery, brain surgery and orthopedic surgeries. Interventions: 1:1 done at bedside. Medications administered throughout the shift. Pt. needs encouragement to take his medications. He questioned his pills and stated several times he didnt want to take them, at one point he looked up to the ceiling and said should I take them? He then took his medications. Pt. caregiver visited today. He spent the majority of the shift in his room in bed, with encouragement pt. attended meals but ate a minimal amount. He was noted to be pulling on the nurses breakroom door stating, I want to get out of here. Response: Pt. continues to be paranoid regarding his medications. He required encouragement with each medication administration. He states he continues to hear voices and believes his Sola is coming here. Pt. is currently to a male. He continues to self isolate. Plan: Patient continues to require crisis interruption and stabilization with medication management and monitoring in a safe therapeutic environment. Continue to manage safety with Q15 minute checks.
[2022-03-22 19:48] VITALS: BP 104/71
[2022-03-22] MEDS: traZODone 50mg tablet PO PRN (19:52)
--- NOTE | 2022-03-23 05:00 | NUR ---
Nursing Progress Note 5150 states GD/DTS. Patient made statements to staff stating he has auditory hallucinations, paranoia, and that he does not feel safe in his home, unable to develop a safety plan and hears voices telling him to kill himself. Pt has psychiatric hx of schizophrenia. Pt has medical Hx of Parkinson disease, HTN, Gerd, L foot surgery, brain surgery and orthopedic surgeries. Interventions: Maintained a safe and supportive environment, provided clear and simple instructions, ensured contract for safety, attempted to orient to reality, provided active listening and positive encouragement, monitored behaviors and provided redirection as needed, and maintained Q 15min safety checks. Response: Pt was cooperative, but spoke very little, hardly any interaction so an assessment was unsuccessful. He was only able/willing to communicate his . He did take PM medications with coaching on swallowing all of the pills and leaving none in his mouth. He was pleasant and cooperative. Patient slept for a few hours and began to ambulate on the unit starting at around 4am asking for coffee, blankets, etc.... He was seen in the hallway blowing kisses at and talking to someone that was not there. Plan: Patient continues to require crisis interruption and stabilization with medication management and monitoring in a safe therapeutic environment. Continue to manage safety with Q15 minute checks.
[2022-03-23 07:41] VITALS: BP 111/72
[2022-03-23] MEDS: LORazepam 1 MG tablet PO SCH ×3 (08:05→20:27)
[2022-03-23] MEDS: carbidoba-levodopa 25-100mg tablet PO SCH ×4 (08:05→20:26)
[2022-03-23] MEDS: atorvastatin 10mg tablet PO SCH (08:05)
[2022-03-23] MEDS: ROPINIRole 1mg tablet PO SCH ×3 (08:05→20:26)
[2022-03-23] MEDS: risperiDONE 0.5mg tablet PO SCH ×2 (08:05→20:27)
[2022-03-23] MEDS: nicotine 14mg patch - 24hr TD SCH (08:05)
--- NOTE | 2022-03-23 18:11 | NUR ---
Nursing Progress Note: Chauncey Problem: Patient made statements to staff stating he has auditory hallucinations, paranoia, and that he does not feel safe in his home, unable to develop a safety plan and hears voices telling him to kill himself. Pt has psychiatric hx of schizophrenia. Pt has medical Hx of Parkinson disease, HTN, Gerd, L foot surgery, brain surgery and orthopedic surgeries. Intervention: Medication given as ordered. Provided with a safe and therapeutic environment, clear communication, active listening and positive encouragement. Response: Patient is resting quietly in bed at the start of the shift. Cooperative with assessment and medications. Continues to endorse auditory hallucinations which tell him to kill himself. Patient takes long pauses before answering questions and appears somewhat withdrawn/ guarded. Tremor is noted to BUE and gait is uneven r/t Parkinsons. No adverse side effects observed from medications. Plan: Patient continues to require crisis interruption and stabilization with medication management and monitoring in a safe and therapeutic environment.
[2022-03-23 19:46] VITALS: BP 113/64
[2022-03-24] MEDS: traZODone 50mg tablet PO PRN ×2 (01:07→20:24)
--- NOTE | 2022-03-24 05:10 | NUR ---
Nursing Progress Note: Chauncey Problem: Patient made statements to staff stating he has auditory hallucinations, paranoia, and that he does not feel safe in his home, unable to develop a safety plan and hears voices telling him to kill himself. Pt has psychiatric hx of schizophrenia. Pt has medical Hx of Parkinson disease, HTN, Gerd, L foot surgery, brain surgery and orthopedic surgeries. Intervention: Medication given as ordered. Provided with a safe and therapeutic environment, clear communication, active listening and positive encouragement. Response: Patient was observed sitting in his wheelchair in his room responding to internal stimuli. Patient was then seen pushing his wheelchair around the unit. Patient began walking through the unit step as if he was trying to walk over something. Patient was encouraged to use his wheelchair or walker in the halls so that he wont fall. Patient continued to pace around unit and go back in forth into his room. Patient was seen mumbling to himself throughout the shift. Patient took night medications without issue and was assisted into bed. Patient awoke a couple of hour later and kept walking down the loya to talk to the tech that he knew. Patient was given prn trazodone to help him go back to sleep. Plan: Patient continues to require crisis interruption and stabilization with medication management and monitoring in a safe and therapeutic environment.
[2022-03-24 07:02] VITALS: BP 112/66
[2022-03-24] MEDS: atorvastatin 10mg tablet PO SCH (07:32)
[2022-03-24] MEDS: carbidoba-levodopa 25-100mg tablet PO SCH ×4 (07:32→20:25)
[2022-03-24] MEDS: ROPINIRole 1mg tablet PO SCH ×3 (07:32→20:24)
[2022-03-24] MEDS: nicotine 14mg patch - 24hr TD SCH (07:32)
[2022-03-24] MEDS: LORazepam 1 MG tablet PO SCH ×3 (07:33→20:25)
[2022-03-24] MEDS: risperiDONE 0.5mg tablet PO SCH ×2 (07:33→20:24)
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
--- NOTE | 2022-03-24 13:54 | NUR ---
F/u 03/24: Pt PO continues to fluctuate though overall poor ~25% avg meals past 5.5 days not meeting needs. Noted pt routinely drinks etoh per DO note; RD d/w RN regarding routine thiamine and folic acid if MD agreeable. Per RN, pt still no issues chewing/swallowing and appears thin though no visible signs of muscle/fat wasting evident. Pt likely chronically underweight w/ hx G-tube not using past [address] d/w RN if pt current PO trends persist would benefit from using G-tube to supplement PO intake in order to meet nutrition needs. RN reports will d/w MD. Given mild weakness and poor PO intake past 5.5 days pt meets minimum non-severe malnutrition criteria; MD notified. LBM 03/23. Will continue to monitor for further nutrition intervention needs this admit. Recs: 1. Continue Regular diet as tolerated; encourage PO 2. Smoothie WB, Shake BIDLD 3. IF poor PO persists; consider utilizing pt G-tube to supplement meal intake in order to provide adequate nutrition repletion w/ likely chronic underweight status 5. Bowel care PRN 6. Weekly wts Addendum: 03/24/22 at [address] Amended: Links added.
--- NOTE | 2022-03-24 16:26 | NUR ---
Nursing Progress Note: Chauncey Problem: 5150 states GD/DTS. Pt has psychiatric hx of schizophrenia. Pt has medical Hx of Parkinson disease, HTN, Gerd, L foot surgery, brain surgery and orthopedic surgeries. Patient is [place] and only has a right sided hearing aid and reports the left one got eaten by his dog. Pt. presents as delusional, and observed responding to IS at length in his room. Later in the afternoon pt. attempted to exit the unit near the breakroom door. Pt. reported he was talking to the pulmonary function technician at that time; provider notified. Interventions: Medications administered, 1:1 assessment. Business Development Coordinator continues to promote independence, to provide pt. with a safe and therapeutic environment, clear communication, active listening and positive encouragement, and encouraged to participate in group therapy. PRN requested; pending. Response: Pt. compliant with medications, he denies SI, HI, denies A/VH, he reports he was hospitalized d/t hearing voices pt. presents as delusional stating Im going to discharge with my Sola. He ambulates on the unit in-between meals. Pt. attended all meals in the main dining room with cohorts maintain between 25-under 50% intake. Pt. did attempt to exit unit and presented as delusional talking to the pulmonary function technician that why found too self-isolate in his room and did not attend group. Business Development Coordinator observed pt. responding to IS at length in his room. Plan: Patient continues to require stabilization with medication management and monitoring in a safe and therapeutic environment. Q15 min checks for safety
[2022-03-24 19:51] VITALS: BP 92/58
[2022-03-24] MEDS: OLANZapine 2.5MG tablet PO SCH (20:24)
--- NOTE | 2022-03-25 04:34 | NUR ---
Nursing Progress Note: Chauncey Problem: 5150 states GD/DTS. Pt has psychiatric hx of schizophrenia. Pt has medical Hx of Parkinson disease, HTN, Gerd, L foot surgery, brain surgery and orthopedic surgeries. Patient is [place] and only has a right sided hearing aid and reports the left one got eaten by his dog. Pt. presents as delusional, and observed responding to IS at length in his room. Later in the afternoon pt. attempted to exit the unit near the break room door. Pt. reported he was talking to the county judge at that time; provider notified. Interventions: Medications administered, 1:1 assessment. Provide pt. with a safe and therapeutic environment, clear communication, active listening and positive encouragement, and encouraged to participate in group therapy. Response: Patient was observed sleeping at beginning of shift. Patient awoken when nurse came in to take vitals. Patient was seen pacing around unit and nurse had to remind back to use wheelchair for saftey. Patient began getting up and down out of bed until snack time. Patient participated in snack and had to be assisted with eating and with lifting water to his mouth in order to take night medications. Patient was given prn trazodone to help him sleep. Patient walked back to room and went to bed. Patient got up multiple times through out the night and had to be redirected back to bed. Patient was cooperative and social but when patient tried to talk to staff and other patient his speech came out garbled and incomprehensible. Patient was found sitting on edge of bed mumbling and appeared to be responding to internal stimuli. Patient was given snack and assisted back into bed. Plan: Patient continues to require stabilization with medication management and monitoring in a safe and therapeutic environment. Q15 min checks for safety
[2022-03-25 07:09] VITALS: BP 110/74
[2022-03-25] MEDS: ROPINIRole 1mg tablet PO SCH ×3 (07:28→20:17)
[2022-03-25] MEDS: risperiDONE 0.5mg tablet PO SCH ×2 (07:28→20:17)
[2022-03-25] MEDS: carbidoba-levodopa 25-100mg tablet PO SCH ×4 (07:28→20:17)
[2022-03-25] MEDS: atorvastatin 10mg tablet PO SCH (07:29)
[2022-03-25] MEDS: LORazepam 1 MG tablet PO SCH ×3 (07:29→20:17)
[2022-03-25] MEDS: nicotine 14mg patch - 24hr TD SCH (07:31)
--- NOTE | 2022-03-25 16:59 | NUR ---
Nursing Progress Note: Chauncey Problem: 5150 states GD/DTS. Pt has psychiatric hx of schizophrenia. Pt has medical Hx of Parkinson disease, HTN, Gerd, L foot surgery, brain surgery and orthopedic surgeries. Patient is [place] and only has a right sided hearing aid and reports the left one got eaten by his dog. Pt. presents as delusional, and observed responding to IS laying in his bed with arms raised to the ceiling. Interventions: Medications administered, 1:1 assessment. Retail Event Assistant continues to promote independence, to provide pt. with a safe and therapeutic environment, clear communication, active listening and positive encouragement, and encouraged to participate in group therapy. Response: Pt. compliant with medications, he denies SI, HI, denies A/VH, he reports he was hospitalized d/t hearing voices pt. reports his discharge plan I dont know. He ambulates on the unit in-between meals. Pt. attended all meals in the main dining room with cohorts, he requires hands on assist. With meals and snack d/t bilateral tremors. Diet was changed to finger foods to assist in self feeding. Pt. continues to spend most free time in his often sleeping. Communication continues to be a struggle with one hearing aid, which seems less effective today, tech writer will call [facility] worker Vianey and request batteries that why found too self-isolate in his room and did not attend group. Plan: Patient continues to require stabilization with medication management and monitoring in a safe and therapeutic environment. Q15 min checks for safety
[2022-03-25] MEDS: OLANZapine 2.5MG tablet PO SCH (20:16)
[2022-03-25] MEDS: traZODone 50mg tablet PO PRN (20:16)
[2022-03-25 20:29] VITALS: BP 117/67
--- NOTE | 2022-03-26 04:52 | NUR ---
Nursing Progress Note: Chauncey Problem: 5150 states GD/DTS. Pt has psychiatric hx of schizophrenia. Pt has medical Hx of Parkinson disease, HTN, Gerd, L foot surgery, brain surgery and orthopedic surgeries. Patient is [place] and only has a right sided hearing aid and reports the left one got eaten by his dog. Pt. presents as delusional, and observed responding to IS laying in his bed with arms raised to the ceiling. Interventions: Medications administered, 1:1 assessment. Industrial Nurse continues to promote independence, to provide pt. with a safe and therapeutic environment, clear communication, active listening and positive encouragement, and encouraged to participate in group therapy. Response: Patient was observed sleeping at beginning of shift. Patient was seen getting up after nurse gave night medications. Patient had to be reminded to take walker with him to prevent falls. Patient took walker down the loya and then forgot the walker at the other end of the unit. Patient was directed into community room to participate in snack. Patient took all medications without issue but again had to assisted with holding water cup due to hand tremors. Patient was given prn trazodone to aid in sleeping. Patient continues to be observed responding to internal stimuli. Plan: Patient continues to require stabilization with medication management and monitoring in a safe and therapeutic environment. Q15 min checks for safety
[2022-03-26] MEDS: nicotine 14mg patch - 24hr TD SCH (07:13)
[2022-03-26] MEDS: ROPINIRole 1mg tablet PO SCH ×3 (07:14→20:22)
[2022-03-26] MEDS: carbidoba-levodopa 25-100mg tablet PO SCH ×4 (07:14→20:22)
[2022-03-26] MEDS: risperiDONE 0.5mg tablet PO SCH ×2 (07:14→20:21)
[2022-03-26] MEDS: LORazepam 1 MG tablet PO SCH ×3 (07:14→20:21)
[2022-03-26] MEDS: atorvastatin 10mg tablet PO SCH (07:14)
[2022-03-26 08:00] VITALS: BP 103/72
--- NOTE | 2022-03-26 16:08 | NUR ---
Nursing Progress Note: Chauncey Problem: Patient made statements to staff stating he has auditory hallucinations, paranoia, and that he does not feel safe in his home, unable to develop a safety plan and hears voices telling him to kill himself. Pt has psychiatric hx of schizophrenia. Pt has medical Hx of Parkinson disease, HTN, Gerd, L foot surgery, brain surgery and orthopedic surgeries. Intervention: Medication given as ordered with no adverse side effects noted. Provided with a safe and therapeutic environment, clear communication, active listening and positive encouragement. Response: Patient is resting quietly in bed at the start of the shift. Cooperative with assessment and medications. Continues to endorse AH but is unable to elaborate on what the voices are saying. Patient is hesitant when answering questions and at times will not answer at all. Continues to display small tremors and impaired gait r/t Parkinsons. Appears withdrawn and guarded. Plan: Patient continues to require crisis interruption and stabilization with medication management and monitoring in a safe and therapeutic environment.
[2022-03-26 20:00] VITALS: BP 111/64
[2022-03-26] MEDS: OLANZapine 2.5MG tablet PO SCH (20:19)
--- NOTE | 2022-03-27 04:38 | NUR ---
Nursing Progress Note: Chauncey Problem: 5150 states GD/DTS. Pt has psychiatric hx of schizophrenia. Pt has medical Hx of Parkinson disease, HTN, Gerd, L foot surgery, brain surgery and orthopedic surgeries. Patient is [place] and only has a right sided hearing aid and reports the left one got eaten by his dog. Interventions: Medications administered, 1:1 assessment. Roentgenology Teacher continues to promote independence, to provide pt. with a safe and therapeutic environment, clear communication, active listening and positive encouragement, and encouraged to participate in group therapy. Response: Chauncey is sitting in the community room and wrote a note saying I love Edwin Robert, I am covered in the blood of Robert and no one can hurt me. Be gone devil-you wont win. He also syl Edwin. PT states I have to go outside to be arrested. RN reassures him that he is not being arrested and that there are no food service team member here to get him. He replies, okay, can I have some coffee? Pt eats snack and takes HS medications without issue. Pt still has delusions thoughts, but is pleasant and appears upbeat. He engages well with staff. PT does wake up twice and asks what time it is, but is able to go back to sleep Plan: Patient continues to require stabilization with medication management and monitoring in a safe and therapeutic environment. Q15 min checks for safety
--- NOTE | 2022-03-27 07:12 | NUR ---
Reassessment; Pt continues on Regular diet now w/ finger foods to assist w/ self feeding per documentation. Pt w/ significant improvement in PO intake, avg 65% x 11 meals and participates in snacks, overall likely meeting est nutrient needs at this time. LB 03/26. No change to recommendations at this time, will continue to monitor.. Recs: 1. Continue Regular diet as tolerated; encourage PO 2. Smoothie WB, Shake BIDLD 3. Routine thiamine, folic acid, MVI if MD agreeable given EtOH hx 4. IF poor PO persists; consider utilizing pt G-tube to supplement meal intake in order to provide adequate nutrition repletion w/ likely chronic underweight status 5. Bowel care PRN 6. Weekly wts Addendum: 03/27/22 at [address] Amended: Links added.
[2022-03-27] MEDS: risperiDONE 0.5mg tablet PO SCH ×2 (07:21→20:10)
[2022-03-27] MEDS: nicotine 14mg patch - 24hr TD SCH (07:21)
[2022-03-27] MEDS: ROPINIRole 1mg tablet PO SCH ×3 (07:21→20:09)
[2022-03-27] MEDS: carbidoba-levodopa 25-100mg tablet PO SCH ×4 (07:21→20:09)
[2022-03-27] MEDS: LORazepam 1 MG tablet PO SCH ×3 (07:21→20:10)
[2022-03-27] MEDS: atorvastatin 10mg tablet PO SCH (07:21)
[2022-03-27 08:00] VITALS: BP 118/50
--- NOTE | 2022-03-27 17:12 | NUR ---
Nursing Progress Note: Chauncey Problem: Patient made statements to staff stating he has auditory hallucinations, paranoia, and that he does not feel safe in his home, unable to develop a safety plan and hears voices telling him to kill himself. Pt has psychiatric hx of schizophrenia. Pt has medical Hx of Parkinson disease, HTN, Gerd, L foot surgery, brain surgery and orthopedic surgeries. Intervention: Medication given as ordered with no adverse side effects noted. Provided with a safe and therapeutic environment, clear communication, active listening and positive encouragement. Response: Patient is resting quietly in bed at the start of the shift. Awakened for breakfast and pt states, The engineer of system development are here to arrest me. Patient is reassured that the engineer of system development are not here to arrest him. Cooperative with assessment and medication. Speech is mumbled and the patient makes frequent pauses and will sometimes not answer questions. Patient continues to endorse AH but does not elaborate on what they say. Patient is noted mumbling to himself frequently. Plan: Patient continues to require crisis interruption and stabilization with medication management and monitoring in a safe and therapeutic environment.
[2022-03-27 19:16] VITALS: BP 107/72
[2022-03-27] MEDS: OLANZapine 2.5MG tablet PO SCH (20:11)
--- NOTE | 2022-03-27 20:50 | NUR ---
Nursing Progress Note: Chauncey Problem: 5150 states GD/DTS. Pt has psychiatric hx of schizophrenia. Pt has medical Hx of Parkinson disease, HTN, Gerd, L foot surgery, brain surgery and orthopedic surgeries. Patient is [place] and only has a right sided hearing aid and reports the left one got eaten by his dog. Interventions: Medications administered, 1:1 assessment. Deputy Program Manager continues to promote independence, to provide pt. with a safe and therapeutic environment, clear communication, active listening and positive encouragement, and encouraged to participate in group therapy. Response: Pt was resting at change of shift in his room. Pt denies s/i, denies a/vh. Pt states his day was good, remains napping in his room prior to HS meds. Pt took HS meds and declines to get up for a snack. Pt says he is very tired and wants to sleep. Nicotine patch could not be located, pt states he thinks he may have already removed it. Plan: Patient continues to require stabilization with medication management and monitoring in a safe and therapeutic environment. Q15 min checks for safety Addendum: 03/28/22 at 0336 by Mena Wills RN Pt woke about 2am and was sitting in his wheel chair talking to himself. Pt states he is talking to the homebirth midwife about alf. Pt appeared anxious, and wasnt able to go back to sleep. Pt asked for coffee. Pt was given prn trazodone and atarax and attempted to go back to sleep but only napped intermittently. Pt didnt want to take additional sleep medication because he wants to be able to "wake up for work."
[2022-03-28] MEDS: traZODone 50mg tablet PO PRN (02:06)
[2022-03-28] MEDS: hydrOXYzine 25 MG tablet PO PRN (02:06)
[2022-03-28 07:38] VITALS: BP 113/65
[2022-03-28] MEDS: nicotine 14mg patch - 24hr TD SCH (08:00)
[2022-03-28] MEDS: LORazepam 1 MG tablet PO SCH ×3 (08:14→20:42)
[2022-03-28] MEDS: risperiDONE 0.5mg tablet PO SCH ×2 (08:15→20:42)
[2022-03-28] MEDS: ROPINIRole 1mg tablet PO SCH ×3 (08:15→20:42)
[2022-03-28] MEDS: atorvastatin 10mg tablet PO SCH (08:15)
[2022-03-28] MEDS: carbidoba-levodopa 25-100mg tablet PO SCH ×4 (08:15→20:42)
--- NOTE | 2022-03-28 08:35 | NUR ---
Left message with Sola with [facility] (ph# [phone]) requesting a call back. FIONA Amaro
--- NOTE | 2022-03-28 09:16 | NUR ---
Met with Chauncey to discuss discharge plan. He reported he is going to go home with his , Sola, and their baby. Informed him he is to a man and not Sola. He stated he can't remember Sola's last name and then proceeded to sit on his bed and talk into the corner of the wall, "Sola, what is your last name?". (His [facility] worker is named Sola). Suggested [facility] as an option for discharge and he was agreeable to it. Completed and submitted [facility] referral. FIONA Amaro
[2022-03-28] MEDS ORDERED: nicotine 14mg patch - 24hr TD ONE (14:00)
--- NOTE | 2022-03-28 18:05 | NUR ---
Nursing Progress Note: Problem: Patient made statements to staff stating he has auditory hallucinations, paranoia, and that he does not feel safe in his home, unable to develop a safety plan and hears voices telling him to kill himself. Pt has psychiatric hx of schizophrenia. Pt has medical Hx of Parkinson disease, HTN, Gerd, L foot surgery, brain surgery and orthopedic surgeries. Pt. continues to c/o of anxiety r/t delusion that the police are coming after him because he is a child molester. Intervention: Maintained a safe and supportive environment, provided clear and simple instructions, ensured contract for safety, and provided active listening and positive encouragement, monitored behaviors. Encouraged participation of ADLs, and maintained Q 15min safety checks. Response: Pt. sleeping in bed at start of shift. Pt. awakened for breakfast and took all medications. During 1:1 interview pt. states, There are rail car maintenance mechanic outside, they are here to get me. Pt. denies all psych symptoms. Cooperative with assessment and medication. Speech is mumbled and the patient makes frequent pauses and needs questions repeated multiple times due to [place]. Pt. is socially withdrawn and isolates to his room most of the day. Patient is noted mumbling to himself often and sometimes waving his hands wildly while in bed. Pt. was observed pacing in the hallway in the afternoon. Plan: Patient continues to require crisis interruption and stabilization with medication management and monitoring in a safe and therapeutic environment. Addendum: 03/28/22 at 1806 by Alec Bell RN Pt.'s gate has improved and pt. did not use wheelchair the entire shift.
[2022-03-28 19:48] VITALS: BP 121/77
[2022-03-28] MEDS: OLANZAPINE 5 MG TABLET PO SCH (20:43)
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
[2022-03-29 07:30] VITALS: BP 95/56
[2022-03-29] MEDS: nicotine 14mg patch - 24hr TD SCH ×2 (08:00→08:04)
[2022-03-29] MEDS: ROPINIRole 1mg tablet PO SCH ×3 (08:02→20:12)
[2022-03-29] MEDS: carbidoba-levodopa 25-100mg tablet PO SCH ×4 (08:03→20:12)
[2022-03-29] MEDS: LORazepam 1 MG tablet PO SCH ×3 (08:03→20:12)
[2022-03-29] MEDS: atorvastatin 10mg tablet PO SCH (08:03)
[2022-03-29] MEDS: risperiDONE 0.5mg tablet PO SCH ×2 (08:03→20:13)
--- NOTE | 2022-03-29 14:30 | NUR ---
Chauncey has a [facility] interview today. Prepped him for the interview. He reported he wants to return home to his fiance', Sola. Informed him he does not have a fiance' and has a instead. Asked him if he wants to return home to his and he talked about the police arresting him. Informed him that [facility] is a safe place for him to stay. FIONA Amaro
--- NOTE | 2022-03-29 15:28 | NUR ---
DECLINED AT [facility] FIONA Barclay
--- NOTE | 2022-03-29 15:29 | NUR ---
Left another message with Sola with [facility] (ph# [phone]) requesting a call back. FIONA Amaro
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
--- NOTE | 2022-03-29 17:59 | NUR ---
Nursing Progress Note: Problem: Patient made statements to staff stating he has auditory hallucinations, paranoia, and that he does not feel safe in his home, unable to develop a safety plan and hears voices telling him to kill himself. Pt has psychiatric hx of schizophrenia. Pt has medical Hx of Parkinson disease, HTN, Gerd, L foot surgery, brain surgery and orthopedic surgeries. Pt. continues to c/o of anxiety r/t delusion that the police are coming after him because he is a child molester. Intervention: Maintained a safe and supportive environment, provided clear and simple instructions, ensured contract for safety, and provided active listening and positive encouragement, monitored behaviors. Encouraged participation of ADLs, and maintained Q 15min safety checks. Response: Pt. sleeping in bed at start of shift. Pt. awake and sitting at bedside talking to the corner of his room. When told to come for breakfast, pt. states, Im talking to the escrow officer right now. Pt. talks to imaginary escrow officer and says, Your honor, I have to go to breakfast now. Pt. ate all breakfast and took all medications. During 1:1 interview pt. reports he believes the filing and polishing supervisor are coming to arrest him. Pt. denies all psych symptoms. Speech is mumbled and the patient makes frequent pauses and needs questions repeated multiple times due to [place]. Pt. is socially withdrawn and isolates to his room most of the day. Pt. overheard mumbling to himself often and sometimes waving his hands wildly while in bed. Pt. observed sitting in chair looking out the window. Plan: Patient continues to require crisis interruption and stabilization with medication management and monitoring in a safe and therapeutic environment.
[2022-03-29 19:52] VITALS: BP 115/76
[2022-03-29] MEDS: OLANZAPINE 5 MG TABLET PO SCH (20:13)
--- NOTE | 2022-03-29 21:16 | NUR ---
Nursing Progress Note: Problem: Patient made statements to staff stating he has auditory hallucinations, paranoia, and that he does not feel safe in his home, unable to develop a safety plan and hears voices telling him to kill himself. Pt has psychiatric hx of schizophrenia. Pt has medical Hx of Parkinson disease, HTN, Gerd, L foot surgery, brain surgery and orthopedic surgeries. Pt. continues to c/o of anxiety r/t delusion that the police are coming after him because he is a child molester. Intervention: Maintained a safe and supportive environment, provided clear and simple instructions, ensured contract for safety, and provided active listening and positive encouragement, monitored behaviors. Encouraged participation of ADLs, and maintained Q 15min safety checks. Response: Pt was in his room talking to the wall at change of shift. Asked patient how he is doing and he states "Im talking to the court of appeals judge." Pt is [place] and has wheelchair and fww available but walks around unit w/out them. Pts gait has improved and pt appears to be steady on his feet tonight. Pt is pleasant and cooperative, watches tv in group room and has snacks before taking HS meds and going to sleep. Plan: Patient continues to require crisis interruption and stabilization with medication management and monitoring in a safe and therapeutic environment.
--- NOTE | 2022-03-30 07:13 | NUR ---
Reassessment; Pt continues on Regular diet w/ finger foods to assist w/ self feeding per documentation. Pt w/ similar PO intake, avg 66% x 11 meals and participates in snacks, overall likely meeting est nutrtient needs at this time. LBM 03/26. No change to recommendations at this time, will continue to monitor. Recs: 1. Continue Regular diet as tolerated; encourage PO 2. Smoothie WB, Shake BIDLD 3. Routine thiamine, folic acid, MVI if MD agreeable given EtOH hx 4. IF poor PO persists; consider utilizing pt G-tube to supplement meal intake in order to provide adequate nutrition repletion w/ likely chronic underweight status 5. Bowel care PRN 6. Weekly wts Addendum: 03/30/22 at [address] Amended: Links added.
[2022-03-30 07:26] VITALS: BP 102/59
[2022-03-30] MEDS: carbidoba-levodopa 25-100mg tablet PO SCH ×4 (07:48→20:10)
[2022-03-30] MEDS: risperiDONE 0.5mg tablet PO SCH ×2 (07:49→20:10)
[2022-03-30] MEDS: LORazepam 1 MG tablet PO SCH ×3 (07:49→20:10)
[2022-03-30] MEDS: atorvastatin 10mg tablet PO SCH (07:49)
[2022-03-30] MEDS: ROPINIRole 1mg tablet PO SCH ×3 (07:49→20:11)
[2022-03-30] MEDS: nicotine 14mg patch - 24hr TD SCH (07:58)
--- NOTE | 2022-03-30 14:35 | NUR ---
DISCHARGE PLANNING La Nena from [facility] (ph# [phone]) in [place] called and plans on interviewing Chauncey this evening on the unit. She faxed Physician's report and requested TB/Chest x-ray for admittance. She reported she will let telegraphic typewriter installer know the outcome of the interview. FIONA Amaro
--- NOTE | 2022-03-30 17:40 | NUR ---
Nursing Progress Note: Problem: Patient made statements to staff stating he has auditory hallucinations, paranoia, and that he does not feel safe in his home, unable to develop a safety plan and hears voices telling him to kill himself. Pt has psychiatric hx of schizophrenia. Pt has medical Hx of Parkinson disease, HTN, Gerd, L foot surgery, brain surgery and orthopedic surgeries. Pt. continues to c/o of anxiety r/t delusion that the police are coming after him because he is a child molester. Intervention: Maintained a safe and supportive environment, provided clear and simple instructions, ensured contract for safety, and provided active listening and positive encouragement, monitored behaviors. Encouraged participation of ADLs, and maintained Q 15min safety checks. Pt. showered with staff assist. Pt.s G-tube assessed as is clean, dry, and intact. Response: Pt. sleeping in bed at start of shift. Pt. awake and sitting at bedside talking to the wall and talking to himself. Pt. went breakfast and ate 100% of meal. Pt. took all medications. During 1:1 interview pt. continues to believe delusion that the police are outside and going to arrest him. Speech is mumbled and the patient makes frequent pauses and needs questions repeated multiple times due to [place]. Pt. is socially withdrawn and isolates to his room most of the day. Pt.s weight taken and pt. has gained 2kg of weight in the last week. Plan: Patient continues to require crisis interruption and stabilization with medication management and monitoring in a safe and therapeutic environment.
[2022-03-30 19:40] VITALS: BP 121/77
[2022-03-30] MEDS: OLANZAPINE 5 MG TABLET PO SCH (20:10)
[2022-03-30] MEDS: traZODone 50mg tablet PO PRN (20:11)
--- NOTE | 2022-03-31 05:00 | NUR ---
Nursing Progress Note: Problem: Patient made statements to staff stating he has auditory hallucinations, paranoia, and that he does not feel safe in his home, unable to develop a safety plan and hears voices telling him to kill himself. Pt has psychiatric hx of schizophrenia. Pt has medical Hx of Parkinson disease, HTN, Gerd, L foot surgery, brain surgery and orthopedic surgeries. Pt. continues to c/o of anxiety r/t delusion that the police are coming after him because he is a child molester. Intervention: Maintained a safe and supportive environment, provided clear and simple instructions, ensured contract for safety, and provided active listening and positive encouragement, monitored behaviors. Encouraged participation of ADLs, and maintained Q 15min safety checks. Pt. showered with staff assist. Pt.s G-tube assessed as is clean, dry, and intact. Response: Patient was observed sleeping at beginning of shift. After tech entered room to get vitals pt was seen walking to community room. Patient attempted to socialize with others and eat snack. Patient was able to make words clear this shift and less mumbled. Patient took all night medications without difficulty and unassisted. Patient also took prn trazodone to help him sleep. Patient returned to bed after snack and only got up once through out the night. Plan: Patient continues to require crisis interruption and stabilization with medication management and monitoring in a safe and therapeutic environment.
[2022-03-31] MEDS: LORazepam 1 MG tablet PO SCH ×3 (07:46→20:16)
[2022-03-31] MEDS: ROPINIRole 1mg tablet PO SCH ×3 (07:46→20:16)
[2022-03-31] MEDS: atorvastatin 10mg tablet PO SCH (07:46)
[2022-03-31] MEDS: risperiDONE 0.5mg tablet PO SCH ×2 (07:46→20:17)
[2022-03-31] MEDS: nicotine 14mg patch - 24hr TD SCH ×2 (07:46→08:00)
[2022-03-31] MEDS: carbidoba-levodopa 25-100mg tablet PO SCH ×4 (07:47→20:16)
[2022-03-31 08:00] VITALS: BP 108/65
--- NOTE | 2022-03-31 14:35 | NUR ---
Called La Nena from [facility] (ph# [phone]). She reported she interviewed Chauncey last night. Answered her questions and advocated that Chauncey would be a good resident. She requested Physician's Report and chest x-ray be completed. Faxed completed and signed Physician's Report and chest x-ray results. Fax# [phone]. La Nena reported she needs to follow up with Chauncey Selby's [facility] worker. FIONA Amaro
--- NOTE | 2022-03-31 17:39 | NUR ---
Nursing Progress Note: Problem: Patient is a 61 y/o male brought in to ED by caregiver, 5150 advisement on 03/15/2022 for GD/DTS. Patient made statements to staff stating he has auditory hallucinations, paranoia, and that he does not feel safe in his home, unable to develop a safety plan and hears voices telling him to kill himself. Pt has psychiatric hx of schizophrenia. Intervention: Received patient who was awake at 0725. Patient ambulated to the Community Room watching TV then ate breakfast. Returned with patient to his room for his Patient Assessment and 1:1 Patient Interview. Patient can be difficult to understand at times. Patient has difficulty hearing, and has a hearing aid in his right ear only at this time. Patient took his medications without hesitation, but refused his Nicotine Patch. Patient was up and down to his room with an unsteady gait. Response: Patient has been in the TV Room then returns to his bed sitting on top and talking non-stop. Patient appears to be speaking non-sensical at this time, possible having auditory hallucinations. This is the first time I have cared for this patient. Patient talks extremely loud, and was asked to quiet down just a little bit x2, while admitting his roommate this afternoon, which he obliged. Patient did not request any prn medications, and would get up and down from eating his meals approximately 5 times each meal stating Linh got things to do. Patient is pleasant and cooperative. Plan: Patient continues to require crisis interruption and stabilization with medication management and monitoring in a safe and therapeutic environment.
[2022-03-31 19:32] VITALS: BP 123/74
[2022-03-31] MEDS: OLANZAPINE 5 MG TABLET PO SCH (20:16)
[2022-03-31] MEDS: traZODone 50mg tablet PO PRN (20:16)
--- NOTE | 2022-04-01 04:49 | NUR ---
Nursing Progress Note: Problem: Patient is a 61 y/o male brought in to ED by caregiver, 5150 advisement on 03/15/2022 for GD/DTS. Patient made statements to staff stating he has auditory hallucinations, paranoia, and that he does not feel safe in his home, unable to develop a safety plan and hears voices telling him to kill himself. Pt has psychiatric hx of schizophrenia. Intervention: Patient ambulated to the Community Room watching TV and socialize. Returned with patient to his room for his Patient Assessment and 1:1 Patient Interview. Patient can be difficult to understand at times. Patient has difficulty hearing, and has a hearing aid in his right ear only at this time. Patient took his medications without hesitation Patient was up and down to his room with an unsteady gait. Response: Patient was recii Plan: Patient continues to require crisis interruption and stabilization with medication management and monitoring in a safe and therapeutic environment.
--- NOTE | 2022-04-01 04:50 | NUR ---
Response: Chauncey Patient was received sleeping at change of shift. Patient continued to sleep until snack time. Patient was observed walking down hallway with out walker. Patient had to be remained multiple times to bring walker with him. Still patient was found leaving it in hallway. Patient was later seen sitting in community room eating and watching tv with other patients. Patient then preceded to sit next to sitter and talk. Patient took all night medication including prn trazodone. Patient took all medications without issue but had to be assisted with holding water cup due to patient stating his hand was asleep and shaking. Patient was observed getting up only once through out the night.
[2022-04-01] MEDS: risperiDONE 0.5mg tablet PO SCH ×2 (07:35→19:44)
[2022-04-01] MEDS: atorvastatin 10mg tablet PO SCH (07:35)
[2022-04-01] MEDS: LORazepam 1 MG tablet PO SCH ×3 (07:35→19:45)
[2022-04-01] MEDS: carbidoba-levodopa 25-100mg tablet PO SCH ×4 (07:35→19:45)
[2022-04-01] MEDS: nicotine 14mg patch - 24hr TD SCH (07:35)
[2022-04-01] MEDS: ROPINIRole 1mg tablet PO SCH ×3 (07:35→19:45)
[2022-04-01 08:24] VITALS: BP 102/70
--- NOTE | 2022-04-01 10:22 | NUR ---
Patient has been having auditory hallucinations and talking/mumbling loudly this morning. Patient was told breakfast was in the dining room and ready to be served. Patient stated he first has "to talk to the axle inspector." Patient walked up to wall cubicles in room, leaned his left ear towards wall and nodded yes while stating, "Ok, go to breakfast?" Reminded and encouraged patient to use his FWW while ambulating however patient refused and stated "I don't need it" and ambulated to dining room without any issues. Patient now back lying in bed appearing to be comfortable but does believe he "will e going to shelter today." Will continue to monitor.
--- NOTE | 2022-04-01 10:22 | NUR ---
PLACEMENT Spoke to La Nena at [facility]. She would like to accept Chauncey. She still needs to get authorization from [facility]. She requested Chauncey's G tube get removed as that was supposed to happen a while ago per Chauncey's [facility] worker, Vianey. She also requested a 30 day supply of meds on hand if he gets admitted to their facility (it would be early next week). FIONA Amaro
--- NOTE | 2022-04-01 13:41 | NUR ---
G Tube removal: Dr Contreras arrived and this nurse assists with Gtube removal. Released 2cc fluid from the bulb and tube removed easily and painless. Pt tolerated well.
--- NOTE | 2022-04-01 13:42 | NUR ---
Dr. Contreras and piggyback clerkMarcus at bedside to remove feeding tube from abd site. Patient tolerated well. Bandaid covered over site cdi.
--- NOTE | 2022-04-01 15:46 | NUR ---
ACCEPTED AT [facility] Chauncey has been accepted at [facility]. They can take him on Monday. They would like him to have medications with him, ad copy writer requested meds get finalized and sent to [facility] for delivery on Monday. He will also need a Covid test Monday AM. FIONA Amaro
--- NOTE | 2022-04-01 16:00 | NUR ---
Nursing Progress Note: Problem: Patient made statements to staff stating he has auditory hallucinations, paranoia, and that he does not feel safe in his home, unable to develop a safety plan and hears voices telling him to kill himself. Pt has psychiatric hx of schizophrenia. Pt has medical Hx of Parkinson disease, HTN, Gerd, L foot surgery, brain surgery and orthopedic surgeries. Pt. continues to c/o of anxiety r/t delusion that the police are coming after him because he is a child molester. Intervention: Maintained a safe and supportive environment, provided clear and simple instructions, ensured contract for safety, and provided active listening and positive encouragement, monitored behaviors. Encouraged participation of ADLs, and maintained Q 15min safety checks. Response: Received patient appearing to be sleeping comfortably in bed at shift change. Patient easily awaken and cooperative with med and assessment. Patient was hesitant to take med at first d/t believing there was [place] and codeine in med cup as he is allergic. Reassured patient that there is no [place] or codeine or any other meds in med cup that he is allergic to. Patient then took med with no issues. Patient denies SI/HI however patient observed having auditory hallucinations and talking/mumbling loudly as if he is speaking to someone throughout day. Patient was told breakfast was in the dining room and ready to be served. Patient stated he first has "to talk to the mustanger." Patient walked up to wall cubicles in room, leaned his left ear towards wall and nodded yes while stating, "Ok, go to breakfast?" Patient has been pacing in and out of room to and from dining room and sitting by the window speaking to wall and window. Patient had meals and snacks in dining room. Patient sat in rec room to watch tv for a while. For the most part of the day patient is in room self-isolating and talking to self. Patient believes he will be going to alf today. Scheduled Ativan given as ordered. Patient celebratory over having feeding tube removed by Dr. Contreras. Patient exclaimed and threw both arms into the air yay I got my feeding tube out now. I dont need it anymore. Linh been eating! Plan: Patient continues to require crisis interruption and stabilization with medication management and monitoring in a safe and therapeutic environment.
[2022-04-01] MEDS: traZODone 50mg tablet PO PRN (19:43)
[2022-04-01] MEDS: OLANZAPINE 5 MG TABLET PO SCH (19:44)
[2022-04-01] MEDS: hydrOXYzine 25 MG tablet PO PRN (19:45)
--- NOTE | 2022-04-02 04:46 | NUR ---
Nursing Progress Note: Problem: Patient is a 61 y/o male brought in to ED by caregiver, 5150 advisement on 03/15/2022 for GD/DTS. Patient made statements to staff stating he has auditory hallucinations, paranoia, and that he does not feel safe in his home, unable to develop a safety plan and hears voices telling him to kill himself. Pt has psychiatric hx of schizophrenia. Intervention: Patient ambulated to the Rec Room engaged in active conversation in a empty room. Returned with patient to his room for his Patient Assessment and 1:1 Patient Interview. Patient can be difficult to understand at times. Patient has difficulty hearing, and has a hearing aid in his right ear only at this time. Patient took his medications without hesitation Patient was up and down to his room with an unsteady gait. Response: Patient was observed standing in a corner of the rec room actively responding to internal stimuli. Patient kept going back to talk to the wall even after being redirected away. The patient continued to become more delusion as the shift went on stating " there is a helicopter outside , they are coining to get me" and asking multiple staff members if the dressmaking teacher were outside. Patient even began stating that they were going to break in and he needed to hid. Patient was found on multiple occasions appeared to be responding to A/V and A/H. Patient had to be reassured by staff that he was safe and nothing was coming to get him. Nurse gave patient prn Atrax due to delusions causing anxiety. Patient finally laid down after prn and was give night medications which he took without issue including prn trazodone to aid in sleep. Plan: Patient continues to require crisis interruption and stabilization with medication management and monitoring in a safe and therapeutic environment.
[2022-04-02 07:30] VITALS: BP 121/69
[2022-04-02] MEDS: LORazepam 1 MG tablet PO SCH ×3 (07:49→20:40)
[2022-04-02] MEDS: risperiDONE 0.5mg tablet PO SCH ×2 (07:49→20:40)
[2022-04-02] MEDS: atorvastatin 10mg tablet PO SCH (07:49)
[2022-04-02] MEDS: ROPINIRole 1mg tablet PO SCH ×3 (07:49→20:40)
[2022-04-02] MEDS: carbidoba-levodopa 25-100mg tablet PO SCH ×4 (07:49→20:40)
[2022-04-02] MEDS: nicotine 14mg patch - 24hr TD SCH (07:54)
[2022-04-02] MEDS ORDERED: ATI1T PO (14:02)
[2022-04-02] MEDS ORDERED: HYDR-3686 PO (14:02)
[2022-04-02] MEDS ORDERED: TRAZ-256 PO (14:02)
[2022-04-02] MEDS ORDERED: RISP1TAB98 PO (14:02)
[2022-04-02] MEDS ORDERED: NICO-631 TD (14:02)
[2022-04-02] MEDS ORDERED: OLAN20TA19 PO (14:02)
[2022-04-02] MEDS ORDERED: CARB1TAB36 PO (14:02)
[2022-04-02] MEDS ORDERED: ROPI1TAB6 PO (14:02)
[2022-04-02] MEDS ORDERED: ATOR20TA66 PO (14:02)
--- NOTE | 2022-04-02 14:38 | NUR ---
Nursing Progress Note: Problem: Patient made statements to staff stating he has auditory hallucinations, paranoia, and that he does not feel safe in his home, unable to develop a safety plan and hears voices telling him to kill himself. Pt has psychiatric hx of schizophrenia. Pt has medical Hx of Parkinson disease, HTN, Gerd, L foot surgery, brain surgery and orthopedic surgeries. Intervention: Maintained a safe and supportive environment, provided clear and simple instructions, ensured contract for safety, and provided active listening and positive encouragement, monitored behaviors. Encouraged participation of ADLs, and maintained Q 15min safety checks. Response: Patient was awake at shift change, pleasant and cooperative. Pt reports decreased AH they are not like they were. Pt reports AH are worse at night. Pt states I am not afraid of nothing. I am not afraid of the rehabilitation program manager no more, the rehabilitation program manager are nice to me, as he points to the roof. When asked how pt is doing pt stated I am going home today. I want to see my beautiful Sola and our baby. When ask where Sola lives pt turned and spoke over his shoulder [place] where do your parents live [place]? Pt denies suicidal and homicidal thoughts. Plan: Patient has been accepted at [facility] and will be discharged on Monday.
[2022-04-02 19:00] VITALS: BP 103/64
[2022-04-02] MEDS: OLANZAPINE 5 MG TABLET PO SCH (20:40)
[2022-04-02] MEDS: traZODone 50mg tablet PO PRN (20:40)
--- NOTE | 2022-04-03 04:28 | NUR ---
Nursing Progress Note: Problem: Patient made statements to staff stating he has auditory hallucinations, paranoia, and that he does not feel safe in his home, unable to develop a safety plan and hears voices telling him to kill himself. Pt has psychiatric hx of schizophrenia. Pt has medical Hx of Parkinson disease, HTN, Gerd, L foot surgery, brain surgery and orthopedic surgeries. Intervention: Maintained a safe and supportive environment, provided clear and simple instructions, ensured contract for safety, and provided active listening and positive encouragement, monitored behaviors. Encouraged participation of ADLs, and maintained Q 15min safety checks. Response: Patient is pleasant and cooperative with care; compliant with medications. PRN Trazodone provided. Nicotine patch removed. Patient denies SI, HI; observed responding to AH and continues to report delusions thought content. Patient asked a few times throughout the shift if publications writer was here to pick him up for surgery and continued to explain his L eye was to be removed. Patient's previous PEG tube site cleaned and new bandage applied. Patient remained in his room throughout the shift; observed sleeping and does not appear to be having difficulty. Plan: Patient has been accepted at [facility] and will be discharged on Monday.
--- NOTE | 2022-04-03 07:03 | NUR ---
Reassessment; Pt continues on Regular diet w/ finger foods to assist w/ self feeding per documentation. Pt w/ similar PO intake, avg 68% x 11 meals and participates in snacks, overall likely meeting est nutrient needs at this time. [facility] 03/30. No change to recommendations at this time, will continue to monitor. Recs: 1. Continue Regular diet as tolerated; encourage PO 2. Smoothie WB, Shake BIDLD 3. Routine thiamine, folic acid, MVI if MD agreeable given EtOH hx 4. IF poor PO persists; consider utilizing pt G-tube to supplement meal intake in order to provide adequate nutrition repletion w/ likely chronic underweight status 5. Bowel care PRN 6. Weekly wts Addendum: 04/03/22 at [address] Amended: Links added.
[2022-04-03] MEDS: risperiDONE 0.5mg tablet PO SCH ×2 (07:54→20:27)
[2022-04-03] MEDS: LORazepam 1 MG tablet PO SCH ×3 (07:54→20:27)
[2022-04-03] MEDS: atorvastatin 10mg tablet PO SCH (07:54)
[2022-04-03] MEDS: carbidoba-levodopa 25-100mg tablet PO SCH ×4 (07:54→20:27)
[2022-04-03] MEDS: ROPINIRole 1mg tablet PO SCH ×3 (07:54→20:27)
[2022-04-03] MEDS: nicotine 14mg patch - 24hr TD SCH (07:55)
[2022-04-03 08:00] VITALS: BP 109/61
--- NOTE | 2022-04-03 17:55 | NUR ---
Nursing Progress Note: [place] Problem: Patient made statements to staff stating he has auditory hallucinations, paranoia, and that he does not feel safe in his home, unable to develop a safety plan and hears voices telling him to kill himself. Pt has psychiatric hx of schizophrenia. Pt has medical Hx of Parkinson disease, HTN, Gerd, L foot surgery, brain surgery and orthopedic surgeries. Patient noted making paranoid and delusional statements on this shift. Intervention: Provided 1:1 assessment, established rapport, active listening and positive encouragement, medication administration, maintained a safe and supportive environment, provided clear and simple instructions, ensured contract for safety, provided redirection as needed, and maintained Q 15 min safety checks. Encouraged participation of ADLs. Response: Patient received sleeping in his room at change of shift. He joined for breakfast in the group room with peers. Patient was receptive to 1:1 assessment and scheduled medication. Patient denies SI/H. He was observed making nonsensical statements, noted talking to himself throughout the shift. Patient endorsed to this copywriter that he was talking to law enforcement and was told not to take his medication. Patient was redirected and reoriented to reality. Patient also endorsing paranoid delusions, stating that he is scared that he is going to be sent to [facility]. Patient observed isolating to his room the majority of the shift. Patient offered PRN medication for anxiety which he refused. He was observed responding to internal stimuli later in the shift, noted facing the door asking to speak to his guest relations officer. Patient noted napping intermittently in his room throughout the shift. He participated for snack/meal times in the group room with peers. Plan: Patient has been accepted at [facility] and will be discharged on Monday.
[2022-04-03 19:22] VITALS: BP 120/70
[2022-04-03] MEDS: traZODone 50mg tablet PO PRN (20:27)
[2022-04-03] MEDS: OLANZAPINE 5 MG TABLET PO SCH (20:27)
--- NOTE | 2022-04-04 04:47 | NUR ---
Nursing Progress Note: Problem: Patient made statements to staff stating he has auditory hallucinations, paranoia, and that he does not feel safe in his home, unable to develop a safety plan and hears voices telling him to kill himself. Pt has psychiatric hx of schizophrenia. Pt has medical Hx of Parkinson disease, HTN, Gerd, L foot surgery, brain surgery and orthopedic surgeries. Intervention: Maintained a safe and supportive environment, provided clear and simple instructions, ensured contract for safety, and provided active listening and positive encouragement, monitored behaviors. Encouraged participation of ADLs, and maintained Q 15min safety checks. Response: Patient is pleasant and cooperative with care; compliant with medication. PRN Trazodone provided. Nicotine patch removed. Patient continues to express delusional thought content; believes to be discharging to his "beautiful and baby girl" and doesn't really orient to reality. Patient also observed responding to IS often. Patient participate in HS snack, showered with staff assistance, clean linen and bandage to ABD changed this shift. Observed sleeping and does not appear to be having difficulty. Plan: Patient has been accepted at [facility] and will be discharged on Monday.
[2022-04-04 08:00] VITALS: BP 103/64
[2022-04-04] MEDS: atorvastatin 10mg tablet PO SCH (08:09)
[2022-04-04] MEDS: LORazepam 1 MG tablet PO SCH ×2 (08:09→12:43)
[2022-04-04] MEDS: ROPINIRole 1mg tablet PO SCH ×2 (08:10→12:43)
[2022-04-04] MEDS: risperiDONE 0.5mg tablet PO SCH (08:10)
[2022-04-04] MEDS: nicotine 14mg patch - 24hr TD SCH (08:10)
[2022-04-04] MEDS: carbidoba-levodopa 25-100mg tablet PO SCH ×2 (08:10→12:43)
== END 2022-04-04 15:30 | disposition home or self-care (01) | DRG 776 ==
LOC: ER 06:33 → ED HOLD 14:30 → ADULT MH 21:01
PROVIDERS: ADMIT Psychiatry & Neurology Psychiatry; ATTEND Psychiatry & Neurology Psychiatry
PROC: 0DP6XUZ Removal of Feeding Device from Stomach, External Approach (ICD-10-PCS; principal; 2022-04-01)
DX: F19.959 Other psychoactive substance use, unspecified with psychoactive substance-induced psychotic disorder, unspecified (principal); R64 Cachexia; F22 Delusional disorders; G20 Parkinson's disease; E78.5 Hyperlipidemia, unspecified; G89.29 Other chronic pain; F12.90 Cannabis use, unspecified, uncomplicated; T42.8X5A Adverse effect of antiparkinsonism drugs and other central muscle-tone depressants, initial encounter; Z20.822 Contact with and (suspected) exposure to COVID-19; E78.00 Pure hypercholesterolemia, unspecified; F17.210 Nicotine dependence, cigarettes, uncomplicated; R13.10 Dysphagia, unspecified; Z79.899 Other long term (current) drug therapy; Z68.1 Body mass index [BMI] 19.9 or less, adult; Z71.6 Tobacco abuse counseling; Y92.89 Other specified places as the place of occurrence of the external cause
CPT/HCPCS: 36415; 71045; 80053; 80061; 80305; 80320; 81001; 83036; 84443; 85025; 87081; 87635; 99285; Q0177